=== PATIENT | female | born 1965 | race Caucasian/White ===

== ENCOUNTER → 2017-08-26 | Outpatient (CLI) | payer OTHER ==
[~2017-08-26] VITALS: Ht 153.7 cm; Wt 104.5 kg
[~2017-08-26] MED LIST: BUPRTAB51 PO; CYM/60 PO; ERGO1TAB12 PO; FOLI1TAB8 PO; HYDR200T5 PO; LEVO200T PO; LOSA50TA54 PO; METH2.5T PO; PRLSR20 PO; TOFA1TAB PO; TRAZ100T29 PO
[2017-08-26 12:46] VITALS: Ht 153.7 cm; Wt 104.5 kg
[2017-08-26 13:23] LABS: BASO % 0.2 %; BASO ABS # 0.01 K/uL (0-0.2); EOS % 1.3 %; EOS ABS # 0.07 K/uL (0-0.5); HEMATOCRIT 38.2 % (37-47); HEMOGLOBIN 12.3 g/dL (12.0-16.0); IG# 0.01 K/uL (0.00-0.02); LYMPH % 33.9 %; LYMPH ABS # 1.82 K/uL (1.2-3.4); MEAN CELL VOLUME 92.5 fL (80-100); MEAN CORPUSCULAR HEMOGLOBIN 29.8 pg (25-34); MEAN CORPUSCULAR HGB CONC 32.2 g/dl (32-36); MEAN PLATELET VOLUME 9.1 fL (7.4-10.4); MONO % 5.6 %; NEUT % 58.8 %; NEUT ABS # 3.16 K/uL (1.4-6.5); PLATELET COUNT 268 K/uL (130-400); RED CELL DISTRIBUTION WIDTH CV 18.9 % (11.5-14.5); RED CELL DISTRIBUTION WIDTH SD 63.8 fL (36.4-46.3); WHITE BLOOD COUNT 5.37 K/uL (4.8-10.8)
[2017-08-26 13:34] LABS: PTT PATIENT 25.3 SECONDS (21.0-31.0)
--- NOTE | 2017-08-26 13:42 | PAT Medication Instructions ---
Service Date Aug 26, 2017. Current Home Medication List Bupropion (Wellbutrin-Xl), 450 MG PO QAM Duloxetine HCl (Cymbalta), 1 CAP PO QAM Ergocalciferol (Vitamin D2), 50,000 PO WK Folic Acid (Folvite), 1 MG PO QAM Hydroxychloroquine Sulfate (Plaquenil), 200 MG PO BID Levothyroxine Sodium (Synthroid), 200 MCG PO QAM Losartan Potassium (Cozaar), 50 MG PO QPM Methotrexate (Methotrexate), 10 MG PO WK Omeprazole (Prilosec), 40 MG PO QAM Tofacitinib Citrate (Xeljanz), 1 TAB PO BID Trazodone Hcl (Trazodone), 400-500 MG PO HS Medication Instructions For Your Scheduled Surgery - Check with salicylic acid blender for instructions: Tofacitinib Citrate (Xeljanz), 1 TAB PO BID Methotrexate (Methotrexate), 10 MG PO WK Hydroxychloroquine Sulfate (Plaquenil), 200 MG PO BID - Hold the following medications 24 hours prior to surgery: Losartan Potassium (Cozaar), 50 MG PO QPM - Hold the following medications the morning of surgery: Ergocalciferol (Vitamin D2), 50,000 PO WK Folic Acid (Folvite), 1 MG PO QAM - Take the following medications the morning of surgery with a sip of water: Omeprazole (Prilosec), 40 MG PO QAM Levothyroxine Sodium (Synthroid), 200 MCG PO QAM Bupropion (Wellbutrin-Xl), 450 MG PO QAM Duloxetine HCl (Cymbalta), 1 CAP PO QAM - Take the following medications as scheduled the night before surgery: Trazodone Hcl (Trazodone), 400-500 MG PO HS If you have any questions please call us at [phone] or [phone] or [phone]
[2017-08-26 13:47] LABS: HEMOGLOBIN A1C 5.4 % (4.5-5.6)
--- NOTE | 2017-08-26 14:20 | DIAGNOSTIC IMAGING REPORT ---
CHEST 2 VIEWS ROUTINE CLINICAL HISTORY: Preoperative chest COMPARISON STUDY: No previous studies for comparison. FINDINGS: The cardiac and mediastinal contours are normal. There is no evidence of focal pulmonary consolidation. There is no evidence of failure. No pleural effusions are visualized.[ There is minor basilar atelectasis. IMPRESSION: No active disease in the chest. Electronically signed by: Renzo Angela M.D. 08/26/2017 2:19 PM Dictated Date/Time: 08/26/2017 2:18 PM
--- NOTE | 2017-08-26 14:24 | DIAGNOSTIC IMAGING REPORT ---
CERVICAL SPINE 2 OR 3 VIEWS CLINICAL HISTORY: PREOP, RHEUMATOID ARTHRITIS COMPARISON STUDY: None. FINDINGS: Lateral, flexion, extension views of the cervical spine. The cervical spine is visualized from C1 through T1. No fracture or subluxation. Alignment remains intact throughout flexion and extension. Moderate disc space narrowing at C5-C6. The C1-C2 interval remains intact. Prevertebral soft tissues are unremarkable. IMPRESSION: 1. Alignment remains intact throughout flexion and extension. Specifically, the C1-C2 interval is maintained. 2. Moderate disc space narrowing at C5-C6. Electronically signed by: Jero Dwyer M.D. 08/26/2017 2:22 PM Dictated Date/Time: 08/26/2017 2:21 PM
[2017-08-26 14:29] LABS: ALBUMIN 3.7 gm/dl (3.4-5.0); CALCIUM 9.2 mg/dl (8.5-10.1); CREATININE 0.96 mg/dl (0.60-1.20)
== END | disposition home or self-care (01) ==
LOC: C.LAB 08:00 → EDSTATUS 09-23 12:28
PROVIDERS: ATTEND Orthopaedic Surgery
DX: Z01.812 Encounter for preprocedural laboratory examination (principal); M06.9 Rheumatoid arthritis, unspecified

== ENCOUNTER 2018-01-12 11:47 | Inpatient (IN) | payer OTHER ==
[2017-12-24 14:37] VITALS: Ht 152.4 cm; Wt 97.7 kg
--- NOTE | 2017-12-31 10:17 | HISTORY & PHYSICAL EXAMINATION ---
DATE OF ADMISSION: 01/12/2018 CHIEF COMPLAINT: Left knee pain. HISTORY OF PRESENT ILLNESS: Ms. Sampson is a 52-year-old female with a 1-1/2 year history of left knee pain. The patient rates her pain a 10/10. She has pain with her daily activities. She has limited standing and walking tolerance. Pain is worse with weightbearing. The patient has been using a walker and a wheelchair to ambulate. She has done home exercise program. She takes Tylenol with Codeine as well as Voltaren gel. She has failed conservative treatment and is scheduled for left knee replacement. PAST MEDICAL HISTORY: Mitral valve regurg, hypertension, sleep apnea. She denies heart disease, diabetes or DVT. PAST SURGICAL HISTORY: , tonsillectomy and lymphadenectomy. SOCIAL HISTORY: The patient denies alcohol or tobacco use. She lives in a 2-story home. She is and retired. FAMILY HISTORY: Negative for DVT. MEDICATIONS: Wellbutrin XL 450 mg, Cymbalta 60 mg, omeprazole 40 mg, folic acid 1 mg, Voltaren 75 mg b.i.d., losartan 50 mg, trazodone 400/500, Topamax 25 mg and Tylenol with Codeine p.r.n. ALLERGIES: TRAMADOL CAUSES SHORTNESS OF BREATH. REVIEW OF SYSTEMS: See HPI. Ten other systems reviewed, all negative. PHYSICAL EXAMINATION: VITAL SIGNS: Height 5 feet 1 inch, weight 221 pounds, BMI 42. GENERAL: This is a well-developed, well-nourished female who is alert and oriented x3. Mood and affect are appropriate. HEENT: Normocephalic, atraumatic. Mucous membranes are moist and intact. NECK: Supple without lymphadenopathy. HEART: Regular rate and rhythm without murmurs, rubs or gallops. LUNGS: Clear to auscultation without wheezes or rhonchi. ABDOMEN: Soft and nontender. Bowel sounds are equal and active. EXTREMITIES: No ecchymosis, redness or warmth. Thigh and calf are soft, nontender. She has mild varus deformity. Range of motion is decreased. She has painful range of motion. She is neurovascularly intact. X-RAY EXAMINATION: AP and lateral views show joint space narrowing and osteophyte formation. IMPRESSION: 1. Degenerative joint disease, left knee. 2. Morbid obesity. PLAN: The patient will be admitted for a left total knee arthroplasty. We will plan on aspirin for DVT prophylaxis. The patient will have home health for therapy.
[~2018-01-12] VITALS: Ht 152.4 cm; Wt 97.7 kg
[2018-01-12] VITALS (7 sets, daily range): BP systolic 146–182; BP diastolic 87–104; PULSE 92–97; TEMP 36.3–37.1; O2SAT 91–99
--- NOTE | 2018-01-12 10:42 | History & Physical Bridge Note ---
H&P Re-Evaluation Bridge Note: I have examined the patient, reviewed the History & Physical and in the interval since the performance of the History & Physical I have noted the following changes of clinical significance: No changes noted
[~2018-01-12 11:47] MED LIST changes: +ACET-749 PO; +ACETAMINOPHEN 500 MG TAB PO SCH; +ATROPINE SULFATE 0.1 MG/ML 5ML SYR IV PRN; +BUPIVACAINE 0.25% 30 ML VIAL ONE; +BUPIVACAINE 0.5 % 5 MG/1 ML PF 10ML VIAL ONE; +CEFAZOLIN 2000MG IV PUSH 15 ML IV SCH; +CeleBREX 200 MG CAP PO SCH; +DEXAMETHASONE 4 MG TAB PO SCH; +DICL-201 PO; -ERGO1TAB12 PO; +EpHEDrine SULFATE INJ 50 MG/ML AMP IV PRN; +FAMOTIDINE 20 MG TAB PO SCH; +FLUT50SP37 INTNAS; -FOLI1TAB8 PO; +GABAPENTIN 900 MG PO SCH; -HYDR200T5 PO; +LACTATED RINGER'S 1000ML 1,000 ML IV SCH; +LACTATED RINGER'S 1000ML 500 ML IV SCH; -METH2.5T PO; +METOCLOPRAMIDE HCL 10 MG TAB PO SCH; +ROPIVACAINE 5MG/ML 30 ML 150 MG, BUPIVACAINE 0.5% MPF INJ 30 ML, EpINEphrine HCL INJ 0.... INFIL SCH; -TOFA1TAB PO; +TOPI50TA16 PO
[2018-01-12] MEDS ORDERED: FENTANYL CITRATE INJ 50 MCG/1 ML 2 ML VIAL ONE (11:54)
[2018-01-12] MEDS ORDERED: MIDAZOLAM HCL 1 MG/ML 2ML VIAL ONE ×2 (11:54→12:35)
[2018-01-12] MEDS ORDERED: ORTHO JOINT ANESTHETIC ONE (12:42)
[2018-01-12] MEDS ORDERED: POVIDONE-IODINE OP SOLN 30 ML BTL ONE (12:43)
[2018-01-12] MEDS ORDERED: BACITRACIN 50000 UNIT VIAL ONE (12:43)
[2018-01-12] MEDS: TRANEXAMIC ACID INJ 1,000 MG x 2 Bags IV SCH ×4 (13:03→17:40)
[2018-01-12] MEDS ORDERED: LIDOCAINE HCL 2% 2 ML VIAL (20MG/ML) ONE (13:59)
[2018-01-12] MEDS ORDERED: PROPOFOL IV EMULSION 10 MG/ML 20 ML VIAL IV ONE (13:59)
[2018-01-12] MEDS ORDERED: ONDANSETRON INJ 2 MG/ML 2 ML VIAL ONE (14:25)
[2018-01-12] MEDS ORDERED: GLYCOPYRROLATE INJ 0.2 MG/ML VIAL ONE (14:27)
--- NOTE | 2018-01-12 14:29 | [facility] Post Operative Brief Note ---
Immediate Operative Summary Operative Date Jan 12, 2018. Pre-Operative Diagnosis Left Knee Degenerative Joint Disease Post-Operative Diagnosis Left Knee Degenerative Joint Disease Procedure(s) Performed Left Total Knee Arthroplasty utilizing [employer] journey to patient match total knee arthroplasty size 4 femur to tibia 13 Kaylin [address] Montilla Patient Resource Coordinator Surgeon(s) Ryan Cummings PA-C Estimated Blood Loss 5CC Findings Consistent with Post-Op Diagnosis Specimens A: Left Knee Bone and Tissue Anesthesia Type MAC Spinal Regional Complication(s) none Disposition Disposition: Recovery Room / PACU
--- NOTE | 2018-01-12 14:31 | [facility] Operative Report ---
Operative Report Operative Date Jan 12, 2018. Pre-Operative Diagnosis Left Knee Degenerative Joint Disease Post-Operative Diagnosis Left Knee Degenerative Joint Disease Procedure(s) Performed Left Total Knee Arthroplasty utilizing [employer] journey to patient match total knee arthroplasty size 4 femur to tibia 13 Kaylin [address] Montilla Hand I Cutter Surgeon(s) Ryan Cummings PA-C Estimated Blood Loss 5CC Findings Severe end-stage tricompartmental degenerative joint disease left knee with varus alignment subchondral sclerosis marginal osteophytes is cystic changes no response to conservative therapy including physical therapy and corticosteroid injections viscous supplementations relative rest activity modification bracing Specimens A: Left Knee Bone and Tissue Anesthesia Type MAC Spinal Regional Complication(s) none Disposition Recovery Room / PACU Indications Patient presents with varus alignment subchondral sclerosis marginal osteophytes cystic formation bone to bone eburnated bone relative rest is been advocated that she is had continued complaints of pain no response of intra- articular corticosteroid as well as Visco supplementation is been tried with no relief patient presents for total knee arthroplasty the above findings were verified time of surgery intraoperatively Description of Procedure After proper prepping and draping of the left lower extremity anterior midline incision was made over the region of the extensor extensor mechanism after meticulous hemostasis was obtained and maintained in subcutaneous tissues a medial parapatellar incision was made The patella was subluxed lateralward the medial lateral gutter were cleaned from any hypertrophic synovitis and scar tissue of the distal femoral block was placed and the distal femoral osteotomy cut was made subsequently the chamfers anterior and posterior osteotomy cuts were made utilizing the 4-in-1 block the tibia was subsequently subluxed anteriorward medial and ateral meniscal remnants were excised in their entirety remnants of the anterior and posterior cruciate ligaments were excised in their entirety excellent exposure of the proximal tibia was obtained the tibial osteotomy guide was placed on the proximal tibial osteotomy cut was made once again the knee was irrigated with copious amounts of sterile saline solution the patella was subsequently everted lateralward thickened scar tissue around the patella was removed the patella was subsequently cut utilizing a freehand technique and was drilled prepared for final preparation and placement of patella socially flexion-extension gaps were checked and the equal and symmetric trials were placed to the appropriate femoral and tibial trials with poly-spacer being placed for equal flexion and extension gaps and full range of motion including extension to 0 and flexion to 140 the trial components after having been taken to recovery range of motion was subsequently removed meticulous hemostasis was obtained and maintained subsequently a knee block injection of joint cocktail including ropivacaine 0.5% 150 mg. Bupivacaine 0.5 % epinephrine 1-200,030 mL's toradol 30 mg dexamethasone 4 mg ketamine 10 mg clonidine 100 micrograms normal saline solution 30 mg was infiltrated into the soft tissues of the posterior knee medial lateral gutters and periosteal synovium special attention was paid to protect neurovascular structures at all times subsequently trial components having been removed the knee was irrigated with sterile saline solution. debris was removed the proximal tibia was subsequently prepared and was made ready for the placement of the tibial component tibial component was also cemented and tamped into position the femoral component was subsequently placed and cemented in the position the patellar component was subsequently cemented in position because hemostasis once again obtained and maintained wound having been thoroughly irrigated with debridement and debridement lavage was performed as well as a medial parapatellar incision closed with #1 Vicryl in interrupted fashion subcutaneous was closed with #2 Vicryl skin was closed with skin clips. PA-C was necessary for prepping and drapping as well as wound closure of deep fascia Sub cutaneous tissue and skin and was necessary for the case. A sterile compressive dressing was placed patient was taken to recovery in stable condition of report dictated by Roldan I attest to the content of the Intraoperative Record and any orders documented therein. Any exceptions are noted below. I attest to the content of the Intraoperative Record and any orders documented therein. Any exceptions are noted below.
[2018-01-12] MEDS ORDERED: ONDANSETRON INJ 2 MG/ML 2 ML VIAL IV PRN (15:30)
[2018-01-12] MEDS ORDERED: MAGNESIUM HYDROXIDE SUSP 30 ML UDC PO PRN (15:30)
[2018-01-12] MEDS ORDERED: ALUMINUM/MAGNESIUM/SIMETH (MAALOX MAX) 30 ML UDC PO PRN (15:30)
[2018-01-12] MEDS ORDERED: BISACODYL 10 MG SUPP PR PRN (15:30)
[2018-01-12] MEDS ORDERED: FLUTICASONE PROPIONATE NA SPR 16 GM BTL PRN (15:30)
--- NOTE | 2018-01-12 15:32 | DIAGNOSTIC IMAGING REPORT ---
L KNEE 1 OR 2 VIEWS ROUTINE CLINICAL HISTORY: 52 years-old Female presenting with AP/LATERAL IN PACU LEFT KNEE. TECHNIQUE: Frontal and lateral views of the left knee were obtained. COMPARISON: None. FINDINGS: Postsurgical changes of total left knee arthroplasty with patellar resurfacing. A surgical drain is in place. Expected intra-articular and soft tissue emphysema. No malalignment. No periprosthetic fracture. No hardware complication. IMPRESSION: Expected postsurgical appearance status post total left knee arthroplasty with patellar resurfacing. Electronically signed by: Cleve Bustamante M.D. 01/12/2018 3:31 PM Dictated Date/Time: 01/12/2018 3:30 PM
--- NOTE | 2018-01-12 15:47 | Anesthesiology Progress Note ---
Anesthesia Post Op Note Date & Time Jan 12, 2018 at 15:46 Vital Signs Pain Intensity: 0 Vital Signs Past 12 Hours Date Time Temp Pulse Resp B/P (MAP) Pulse Ox O2 Delivery O2 Flow Rate FiO2 01/12/18 15:41 150/92 01/12/18 15:40 91 13 01/12/18 15:40 91 13 99 01/12/18 15:36 146/82 01/12/18 15:35 90 19 98 01/12/18 15:35 90 19 01/12/18 15:31 135/82 01/12/18 15:30 91 16 98 01/12/18 15:30 91 16 01/12/18 15:26 123/80 01/12/18 15:25 94 14 01/12/18 15:25 93 14 99 01/12/18 15:21 122/74 01/12/18 15:20 93 16 98 01/12/18 15:20 93 16 01/12/18 15:15 93 18 117/71 97 01/12/18 15:15 93 18 01/12/18 15:15 36.2 94 16 117/71 97 Nasal Cannula 2 01/12/18 12:14 37.1 95 20 182/104 96 Room Air Notes Mental Status: alert / awake / arousable, participated in evaluation Pt Amnestic to Procedure: Yes Nausea / Vomiting: adequately controlled Pain: adequately controlled Airway Patency, RR, SpO2: stable & adequate BP & HR: stable & adequate Hydration State: stable & adequate Neuraxial Anesthesia: was administered, sensory block is resolving Anesthetic Complications: no major complications apparent Anesthetic Complications: patient remembers joint being prepped, but no memory of surgical procedure or block placement otherwise. Very satisfied with her anesthetic care.
[2018-01-12] MEDS: D5W AND 1/2NSS + 20MEQ KCL 1,000 ML IV SCH (17:43)
[2018-01-12] MEDS: FERROUS GLUCONATE 324 MG TAB PO SCH (17:43)
[2018-01-12] MEDS: CEFAZOLIN IV 2,000 MG in SYRINGE 0 ML IV SCH (20:08)
[2018-01-12] MEDS: DOCUSATE SODIUM 100 MG CAP PO SCH (20:10)
[2018-01-12] MEDS: LOSARTAN POTASSIUM 50 MG TAB PO SCH (20:10)
[2018-01-12] MEDS: TOPIRAMATE 50 MG TAB PO SCH (20:11)
[2018-01-12] MEDS: SENNA 8.6 MG TAB PO SCH (20:11)
[2018-01-12] MEDS: ASPIRIN 81 MG ECTAB PO SCH (20:11)
[2018-01-12] MEDS: CeleBREX 200 MG CAP PO SCH (20:12)
[2018-01-12] MEDS: OXYCODONE HCL IR 5 MG TAB (IMMEDIATE RELEASE) PO PRN (20:25)
[2018-01-12] MEDS: TRAZODONE HCL 100 MG TAB PO SCH (21:50)
[2018-01-12] MEDS: MoRPHine SULFATE 2 MG/ML CARP IV PRN (21:54)
[2018-01-12] MEDS: ACETAMINOPHEN 500 MG TAB PO SCH (21:54)
[2018-01-13] MEDS: D5W AND 1/2NSS + 20MEQ KCL 1,000 ML IV SCH ×2 (03:06→13:00)
[2018-01-13 03:54] VITALS: BP 107/67; PULSE 78; TEMP 36.8; O2SAT 94
[2018-01-13] MEDS: CEFAZOLIN IV 2,000 MG in SYRINGE 0 ML IV SCH (04:08)
[2018-01-13] MEDS: ACETAMINOPHEN 500 MG TAB PO SCH ×2 (05:34→13:41)
[2018-01-13] MEDS: LEVOTHYROXINE 200 MCG TAB PO SCH (05:35)
[2018-01-13 06:07] LABS: HEMATOCRIT 36.4 % (37-47); HEMOGLOBIN 12.2 g/dL (12.0-16.0); MEAN CELL VOLUME 93.8 fL (80-100); MEAN CORPUSCULAR HEMOGLOBIN 31.4 pg (25-34); MEAN CORPUSCULAR HGB CONC 33.5 g/dl (32-36); MEAN PLATELET VOLUME 9.2 fL (7.4-10.4); PLATELET COUNT 220 K/uL (130-400); RED CELL DISTRIBUTION WIDTH CV 14.1 % (11.5-14.5); RED CELL DISTRIBUTION WIDTH SD 48.1 fL (36.4-46.3); WHITE BLOOD COUNT 10.19 K/uL (4.8-10.8)
[2018-01-13 06:43] LABS: CALCIUM 8.6 mg/dl (8.5-10.1); POTASSIUM 4.1 mmol/L (3.5-5.1)
--- NOTE | 2018-01-13 06:49 | Orthopedic Progress Note ---
Orthopedic Progress Note Date of Service Jan 13, 2018. Subjective Post OP Day: 1 (left TKA) Reports: feeling well, pain controlled w PO medications, Denies: complaints, chest pain, SOB, nausea / vomiting, light headedness, calf pain Objective calves soft nontender, N/V intact, capillary refill less than 2 sec., dressing C /D/I, A&O x3, toes mobile, hemovac drainage (200cc total since surgery) Date Time Temp Pulse Resp B/P (MAP) Pulse Ox O2 Delivery O2 Flow Rate FiO2 01/13/18 03:54 36.8 78 16 107/67 (80) 94 Room Air 01/12/18 23:10 Room Air 01/12/18 22:55 36.7 96 16 146/87 (106) 91 Room Air 01/12/18 20:06 97 160/93 (115) 01/12/18 19:02 36.9 95 16 147/89 (108) 97 Room Air 01/12/18 18:00 36.3 95 16 157/91 (113) 98 Nasal Cannula 2.0 01/12/18 17:11 36.5 92 17 152/91 (111) 98 Nasal Cannula 2.0 01/12/18 16:00 99 Nasal Cannula 2.0 01/12/18 16:00 99 Nasal Cannula 2.0 01/12/18 15:52 36.4 91 15 154/82 99 Nasal Cannula 2 01/12/18 15:41 150/92 01/12/18 15:40 91 13 01/12/18 15:40 91 13 99 01/12/18 15:36 146/82 01/12/18 15:35 90 19 98 01/12/18 15:35 90 19 01/12/18 15:31 135/82 01/12/18 15:30 91 16 98 01/12/18 15:30 91 16 01/12/18 15:26 123/80 01/12/18 15:25 94 14 01/12/18 15:25 93 14 99 01/12/18 15:21 122/74 01/12/18 15:20 93 16 98 01/12/18 15:20 93 16 01/12/18 15:15 93 18 117/71 97 01/12/18 15:15 93 18 01/12/18 15:15 36.2 94 16 117/71 97 Nasal Cannula 2 01/12/18 12:14 37.1 95 20 182/104 96 Room Air Laboratory Results 24 Hours: Test 01/13/18 05:20 Hematocrit 36.4 % Hemoglobin 12.2 g/dL Assessment & Plan Assessment: POD #1 s/p Left TKA -pt/ot -dvt proph with yvette/scd/asa -plan for d/c home with HHPT, likely Hypertension- continue home meds Discharge Planning Discharge Planning: home with home health DVT Prophylaxis: TEDs, SCDs, ASA Therapy: Physical Therapy
--- NOTE | 2018-01-13 06:50 | Discharge Instructions ---
Discharge Instructions Date of Service Jan 13, 2018. Admission Reason for Admission: Left Knee Osteoarthritis Discharge Discharge Diagnosis / Problem: left total knee replacement Discharge Goals Goal(s): Decrease discomfort, Improve function, Increase independence Activity Recommendations Activity Limitations: as noted below Weightbearing Status: Left weightbearing (as tolerated) . Instructions / Follow-Up Instructions / Follow-Up ACTIVITY RECOMMENDATIONS: SELF CARE INSTRUCTIONS AFTER TOTAL KNEE REPLACEMENT A. You may need to continue a physical therapy program after discharge from the hospital. There are several options available to you. Your doctor will assist you in selecting the best one for you. 1. An out-patient facility 2 to 3 times a week for therapy or home therapy. 2. Continue working on all exercises taught to you in the hospital. Your goals should be to increase bending of your knee to 90 degrees and beyond and to fully straighten your knee. B. You may progress at your own pace from walking with a walker or crutches to a cane; then to no assistive devices. C. Make walking a part of your daily routine. Be up as much as comfortable with rest periods throughout the day. Rest with leg elevation is very important. Use the ice wrap frequently for the first 3-4 weeks. D. There are no restrictions on activities. You may ride in a car, shop, participate in goldsmith apprentice and all social activities. E. Wear the long elastic stockings (DEBRA hose) 20 hours a day for 2 weeks after surgery. They can be removed several times a day for laundering and for a bath. F. You may shower, no tub baths until cleared by your doctor. SPECIAL CARE INSTRUCTIONS: VERY IMPORTANT TO READ AND REVIEW A. There are a few signs you need to watch for after you are home. Call [facility] if you notice any of the followin. Increased severe knee pain. Some pain is expected especially when you exercise. 2. Increased swelling in your leg or knee; pain or swelling of the calf muscle in either lower leg. 3. Any fluid drainage from the incision. 4. Shortness of breath or chest pain. B. Please call [facility] at if you have any concerns or questions about your operation or recovery. The doctor or his nurse will return your call promptly. C. You must take antibiotics before dental work, bladder, bowel or other surgery. Your doctor will provide you with a permanent care to carry describing this precaution. IMPORTANT: * REMEMBER TO TAKE ASPIRIN, 81 MG, TWICE DAILY FOR 4 WEEKS UNLESS OTHERWISE DIRECTED. THIS IS YOUR BLOOD THINNER. * HIGH RISK PATIENTS MAY BE PRESCRIBED A STRONGER BLOOD THINNER. THIS WILL BE PROVIDED AT DISCHARGE. * CALL IF INCREASED PAIN, REDNESS, DRAINAGE OR FEVER GREATER THAT 101. * WEAR DEBRA HOSE 20 HOURS PER DAY FOR 2 WEEKS. * DERMABOND Prineo- This is a mesh tape dressing that is covered with glue. It should remain in place until the incision is properly healed, usually 10-14 days. This dressing is designed to naturally slough off. You may trim the excess mesh tape as it peels off. Incision may be briefly wet in a shower. Dry immediately by blotting with a clean, dry towel. Do not bath or swim until instructed by your doctor. Do not scratch, rub, or pick at the dressing. Do not apply any topical ointments or lotions until dressing is completely removed and/or instructed by your doctor. There may be a small piece of suture material at one end of your incision. Do not pull or trim this. If it is bothersome or catching on clothing, you may cover it with a band-aid. FOLLOW UP VISIT: If appointment is not already scheduled: Please call [facility] to make a follow-up appointment for 2 weeks after your surgery at . Current Hospital Diet Patient's current hospital diet: Regular Diet Discharge Diet Recommended Diet: Regular Diet Procedures Procedures Performed: Left Total Knee Arthroplasty utilizing [employer] journey to patient match total knee arthroplasty size 4 femur to tibia 13 Kaylin 29 oval patella Pending Studies Studies pending at discharge: no Medical Emergencies . Who to Call and When: Medical Emergencies: If at any time you feel your situation is an emergency, please call 911 immediately. . Non-Emergent Contact Non-Emergency issues call your: Primary Care Provider, Surgeon . "Provider Documentation" section prepared by Dario Triana. . [place] Drug Monitoring Program Search Results: patient reviewed within database, no issues identified
[2018-01-13 07:03] VITALS: BP 146/85; PULSE 77; TEMP 36.8; O2SAT 95
[2018-01-13] MEDS: MoRPHine SULFATE CR 15 MG TAB (MS CONTIN) PO SCH ×2 (08:25→20:02)
[2018-01-13] MEDS: OXYCODONE HCL IR 5 MG TAB (IMMEDIATE RELEASE) PO PRN ×2 (08:26→13:40)
[2018-01-13] MEDS: ASPIRIN 81 MG ECTAB PO SCH ×2 (08:27→20:04)
[2018-01-13] MEDS: DOCUSATE SODIUM 100 MG CAP PO SCH ×2 (08:27→20:03)
[2018-01-13] MEDS: FERROUS GLUCONATE 324 MG TAB PO SCH ×3 (08:27→17:42)
[2018-01-13] MEDS: MULTIVITAMIN TAB PO SCH (08:27)
[2018-01-13] MEDS: CeleBREX 200 MG CAP PO SCH (08:28)
[2018-01-13] MEDS: BUPROPION PO SCH ×2 (08:29)
[2018-01-13] MEDS ORDERED: DULOXETINE HCL 60 MG CAP PO SCH (09:00)
[2018-01-13] MEDS ORDERED: BuPROPion XL 300 MG TABCR PO SCH (09:00)
--- NOTE | 2018-01-13 10:45 | Anesthesiology Progress Note ---
Anesthesia Post Op Note Date & Time Jan 13, 2018 at 10:43 Vital Signs Vital Signs Past 12 Hours Date Time Temp Pulse Resp B/P (MAP) Pulse Ox O2 Delivery O2 Flow Rate FiO2 01/13/18 08:00 Room Air 01/13/18 07:03 36.8 77 17 146/85 (105) 95 Room Air 01/13/18 03:54 36.8 78 16 107/67 (80) 94 Room Air 01/12/18 23:10 Room Air 01/12/18 22:55 36.7 96 16 146/87 (106) 91 Room Air Notes Mental Status: alert / awake / arousable, participated in evaluation Pt Amnestic to Procedure: Yes Nausea / Vomiting: adequately controlled Pain: adequately controlled Airway Patency, RR, SpO2: stable & adequate BP & HR: stable & adequate Hydration State: stable & adequate Anesthetic Complications: no major complications apparent
[2018-01-13] MEDS: MoRPHine SULFATE 2 MG/ML CARP IV PRN (11:24)
[2018-01-13 11:30] VITALS: BP 124/70; PULSE 76; TEMP 36.4; O2SAT 99
[2018-01-13] MEDS: DULOXETINE HCL 60 MG CAP PO SCH (12:50)
[2018-01-13] MEDS ORDERED: MoRPHine SULFATE 2 MG/ML CARP IV PRN (14:00)
[2018-01-13] MEDS: KETOROLAC TROMETHAMINE 30 MG/ML VIAL IV PRN (14:31)
[2018-01-13 15:17] VITALS: BP 150/86; PULSE 86; TEMP 36.6; O2SAT 95
[2018-01-13 21:53] VITALS: BP 161/82; PULSE 88; O2SAT 97
[2018-01-13] MEDS: LOSARTAN POTASSIUM 50 MG TAB PO SCH (21:54)
[2018-01-13] MEDS: TOPIRAMATE 50 MG TAB PO SCH (21:54)
[2018-01-13] MEDS: SENNA 8.6 MG TAB PO SCH (21:55)
[2018-01-13] MEDS: TRAZODONE HCL 100 MG TAB PO SCH (22:03)
[2018-01-13 22:49] VITALS: BP 122/78; PULSE 90; TEMP 37; O2SAT 94
[2018-01-13] MEDS: HYDROCODONE/ACETAMIN 5/325MG TAB PO PRN (23:34)
[2018-01-14] MEDS: KETOROLAC TROMETHAMINE 30 MG/ML VIAL IV PRN (00:53)
[2018-01-14] MEDS: LEVOTHYROXINE 200 MCG TAB PO SCH (05:24)
[2018-01-14] MEDS: HYDROCODONE/ACETAMIN 5/325MG TAB PO PRN ×4 (05:25→15:21)
--- NOTE | 2018-01-14 07:06 | Orthopedic Progress Note ---
Orthopedic Progress Note Date of Service Jan 14, 2018. Subjective Post OP Day: 2 Reports: feeling well, Denies: complaints, chest pain, SOB, nausea / vomiting, light headedness, calf pain Additional Notes: poor pain control yesterday afternoon, seems improved this am Objective calves soft nontender, N/V intact, capillary refill less than 2 sec., incision C /D/I, A&O x3, toes mobile Date Time Temp Pulse Resp B/P (MAP) Pulse Ox O2 Delivery O2 Flow Rate FiO2 01/13/18 23:30 Room Air 01/13/18 22:49 37.0 90 16 122/78 (93) 94 Room Air 01/13/18 21:53 88 20 161/82 (108) 97 Room Air 01/13/18 15:30 Room Air 01/13/18 15:17 36.6 86 20 150/86 (107) 95 Room Air 01/13/18 11:30 36.4 76 12 124/70 (88) 99 Room Air 01/13/18 08:00 Room Air Assessment & Plan Assessment: POD #2 s/p Left TKA -pt/ot -dvt proph with yvette/scd/asa -plan for d/c home with HHPT, if pain controlled after PT today Hypertension- continue home meds Discharge Planning Discharge Planning: home with home health DVT Prophylaxis: TEDs, SCDs, ASA Therapy: Physical Therapy
[2018-01-14] MEDS ORDERED: CLB200 PO (07:08)
[2018-01-14] MEDS ORDERED: ONDA-170 PO (07:08)
[2018-01-14] MEDS ORDERED: MRPSR15 PO (07:08)
[2018-01-14] MEDS ORDERED: CLC100 PO (07:08)
[2018-01-14] MEDS ORDERED: HYDR-5688 PO (07:08)
[2018-01-14] MEDS ORDERED: ASPEC81 PO (07:08)
[2018-01-14 07:24] VITALS: BP 149/77; PULSE 89; TEMP 36.6; O2SAT 92
[2018-01-14] MEDS: MoRPHine SULFATE CR 15 MG TAB (MS CONTIN) PO SCH (08:42)
[2018-01-14] MEDS: FERROUS GLUCONATE 324 MG TAB PO SCH ×2 (08:42→13:04)
[2018-01-14] MEDS: DULOXETINE HCL 60 MG CAP PO SCH (08:42)
[2018-01-14] MEDS: BUPROPION PO SCH ×2 (08:43)
[2018-01-14] MEDS: MULTIVITAMIN TAB PO SCH (08:43)
[2018-01-14] MEDS: DOCUSATE SODIUM 100 MG CAP PO SCH (09:53)
[2018-01-14] MEDS: ASPIRIN 81 MG ECTAB PO SCH (09:53)
[2018-01-14] MEDS ORDERED: PANTOprazole SOD 40 MG TAB PO STA (10:45)
[2018-01-14 10:51] VITALS: BP 149/77; PULSE 89; TEMP 36.6; O2SAT 92
== END 2018-01-14 15:39 | disposition home health service (06) | DRG 470 ==
LOC: C.ACU 11:47 → C.3E 12:30 → ENRESERV 15:39
PROVIDERS: ADMIT Orthopaedic Surgery; ATTEND Orthopaedic Surgery
PROC: 0SRD0J9 Replacement of Left Knee Joint with Synthetic Substitute, Cemented, Open Approach (ICD-10-PCS; principal; 2018-01-12 13:45)
DX: M17.12 Unilateral primary osteoarthritis, left knee (principal); Z68.41 Body mass index [BMI] 40.0-44.9, adult; I10 Essential (primary) hypertension; E66.01 Morbid (severe) obesity due to excess calories; Z79.899 Other long term (current) drug therapy; Z88.5 Allergy status to narcotic agent

== ENCOUNTER 2020-04-17 07:20 | Inpatient (IN) ==
--- NOTE | 2020-03-16 14:31 | PAT Medication Instructions ---
Medication Instructions Date of Service March 16, 2020 Home Medications amoxicillin 500 mg PO UD PRN bupropion HCl [Wellbutrin XL] 150 mg PO QAM bupropion HCl [Wellbutrin XL] 300 mg PO QAM carvedilol [Coreg] 6.25 mg PO BID chlorthalidone 12.5 mg PO QAM cholecalciferol (vitamin D3) 50 mcg PO QAM duloxetine [Cymbalta] 30 mg PO QAM duloxetine [Cymbalta] 120 mg PO QAM levothyroxine 175 mcg PO QAM multivitamin 1 tab PO QAM omeprazole 40 mg PO QAM trazodone 500 mg PO HS vitamin B complex 1 tab PO QAM Continue as directed amoxicillin 500 mg PO UD PRN DO NOT take the morning of surgery chlorthalidone 12.5 mg PO QAM cholecalciferol (vitamin D3) 50 mcg PO QAM multivitamin 1 tab PO QAM vitamin B complex 1 tab PO QAM Take morning of surgery With a small sip of water, OTHERWISE NOTHING TO EAT OR DRINK AFTER MIDNIGHT: bupropion HCl [Wellbutrin XL] 150 mg PO QAM bupropion HCl [Wellbutrin XL] 300 mg PO QAM carvedilol [Coreg] 6.25 mg PO BID duloxetine [Cymbalta] 30 mg PO QAM duloxetine [Cymbalta] 120 mg PO QAM levothyroxine 175 mcg PO QAM omeprazole 40 mg PO QAM Take evening before surgery carvedilol [Coreg] 6.25 mg PO BID trazodone 500 mg PO HS Other Notes If you have any questions please call us at [phone] or [phone] or [phone] or [phone]
--- NOTE | 2020-03-19 13:57 | Anesthesiology Consultation ---
Date of Service March 19, 2020 Assessment & Plan (1) Encounter for pre-operative examination: Patient reported to nurse that she is taking 500mg of Trazodone at bedtime. Awaiting return call from patient to confirm this, as this dose is extremely high. Patient also reports h/o mitral regurgitation, and that she pre-treats with ABX prior to dental procedures. She reports she had an echo prior to previous TKA in 2018. Will attempt to obtain. Patient also to see PCP for surgeon-ordered clearance, though she is unsure of the date at this time. COVID Status: As of 03/16 nurse assessment, patient denies travel to endemic area, known exposure/sick contacts, or symptoms of COVID19. Preoperative COVID19 testing to be completed prior to surgery. Chart Review Chart Review: Acceptable Risk for Surgery (pending surgeon ordered PCP clearance) and Patient seen in Pre Admission Testing Teaching & Discussion Instructed NPO after midnight before surgery, except medications with 15 cc of water. Medication instructions provided according to the PAT guidelines. History Surgery Operation Date: 04/17/20 07:15 Proposed Procedures p Right Total Knee Arthroplasty - Per Montilla DO Height/Weight Height: 5 ft 1 in Weight: 99.337 kg Allergies Allergy/AdvReac Type Severity Reaction Status Date / Time tramadol Allergy Severe SUPPRESSES Verified 03/13/20 14:35 RESPIRATORY SYSTEM Medications Home Medications Medication Instructions Recorded Confirmed Last Taken amoxicillin 500 mg PO UD PRN 03/13/20 03/13/20 Unknown bupropion HCl [Wellbutrin XL] 150 mg PO QAM 03/13/20 03/13/20 Unknown bupropion HCl [Wellbutrin XL] 300 mg PO QAM 03/13/20 03/13/20 Unknown carvedilol [Coreg] 6.25 mg PO BID 03/13/20 03/13/20 Unknown chlorthalidone 12.5 mg PO QAM 03/13/20 03/13/20 Unknown cholecalciferol (vitamin D3) 50 mcg PO QAM 03/13/20 03/13/20 Unknown [Vitamin D3] duloxetine [Cymbalta] 30 mg PO QAM 03/13/20 03/13/20 Unknown duloxetine [Cymbalta] 120 mg PO QAM 03/13/20 03/13/20 Unknown levothyroxine 175 mcg PO QAM 03/13/20 03/13/20 Unknown multivitamin 1 tab PO QAM 03/13/20 03/13/20 Unknown omeprazole 40 mg PO QAM 03/13/20 03/13/20 Unknown trazodone 500 mg PO HS 03/13/20 03/13/20 Unknown vitamin B complex 1 tab PO QAM 03/13/20 03/13/20 Unknown tofacitinib [Xeljanz] 5 mg PO HS 03/19/20 03/19/20 Unknown Past Medical History Medical History Barretts esophagus Depression with anxiety Fibromyalgia GERD (gastroesophageal reflux disease) Hx of migraines Hyperlipidemia CONTROLLED WITH DIET Hypertension Hypothyroidism Insomnia Mitral valve regurgitation PT STATES DOES PRE-TREAT BEFORE DENTAL PROCEDURES Osteoarthritis Rheumatoid arthritis Exercise / Class Metabolic Activity III < 4 Walking/Shop/Light housework (Using cane for ambulation, +ANDRE with stairs, denies CP or ANDRE with ambulation on one level) Past Family History Family History Other No significant family history Past Surgical History Surgical History Cyst REMOVED FROM RT ARM H/O laparoscopy FOR ENDOMETRIOSIS History of section X 1 History of colonoscopy History of esophagogastroduodenoscopy (EGD) History of nasal septoplasty History of tonsillectomy and adenoidectomy History of total knee replacement LEFT Nausea and vomiting after administration of anesthetic agent [place] teeth removed Past Anesthesia History No Hx of Anesthesia Complications (other than PONV) and No Family Hx of Anesthesia Complications History of PONV History of PONV (not with previous TKA) and Hx of Motion Sickness Social History Smoking Status: Never smoker Do You Dip or Chew Tobacco: No Hx Alcohol Use: Yes Alcohol type: wine and hard liquor alcohol intake frequency: a few times a month Hx Substance Use: No Review of Systems Pt denies any recent chest pain, shortness of breath, palpitations, cough, fever or URI. Physical Exam Vital Signs BP: 124/84 P: 78bpm SPO2: 98% RA T: 98.3 F R: 14 Constitutional + obese ENMT Mouth: + chipped teeth (upper L broken filling); no loose teeth Thyromental Distance: > or= 3.5 Finger Breadths (4) Mallampati Class: III Neck + thick neck; neck extension not limited Respiratory normal respiratory effort Auscultation: lungs clear to auscultation bilaterally Cardiovascular Rate/Rhythm: regular rate and regular rhythm Heart Sounds: no murmur Extremities: no edema Testing Laboratory Results 03/19/20 14:10 03/19/20 14:10 PT 10.6 Seconds (9.0-12.0) 03/19/20 14:10 INR 1.0 (0.9-1.1) 03/19/20 14:10 APTT 24.5 Seconds (21.0-31.0) 03/19/20 14:10 Hemoglobin A1c 5.6 % (4.5-5.6) 03/19/20 14:10 Urine Color Yellow 03/19/20 14:40 Urine Appearance Cloudy (Clear) A 03/19/20 14:40 Urine pH 5.0 (4.5-7.5) 03/19/20 14:40 Ur Specific [place] 1.027 (1.000-1.030) 03/19/20 14:40 Urine Protein Negative (Negative) 03/19/20 14:40 Urine Glucose (UA) Negative (Negative) 03/19/20 14:40 Urine Ketones Negative (Negative) 03/19/20 14:40 Urine Nitrite Negative (Negative) 03/19/20 14:40 Ur Leukocyte Esterase Trace (Negative) H 03/19/20 14:40 Urine WBC (Auto) 10-30 /hpf (0-5) H 03/19/20 14:40 Urine RBC (Auto) 0-4 /hpf (0-4) 03/19/20 14:40 U Hyaline Cast (Auto) 1-5 /lpf (0-5) 03/19/20 14:40 U Epithel Cells (Auto) >30 /lpf (0-5) H 03/19/20 14:40 Urine Bacteria (Auto) 1+ (Negative) H 03/19/20 14:40 Blood Type O Positive 03/19/20 14:10 Antibody Screen NEGATIVE 03/19/20 14:10 Electrocardiogram Date: 03/19/20 Findings: + NSR @ (70bpm) iRBBB. No significant change from 08/26/2017 EKG. Chest X-Ray Date: 09/04/19 Findings: + NAD and + R hemidiaphragm elevation ("slight")
--- NOTE | 2020-03-19 15:31 | Electrocardiogram Report ---
Test Reason : Blood Pressure : / mmHG Vent. Rate : 070 BPM Atrial Rate : 070 BPM P-R Int : 166 ms QRS Dur : 088 ms QT Int : 412 ms P-R-T Axes : 047 014 073 degrees QTc Int : 444 ms Normal sinus rhythm Incomplete right bundle branch block When compared with ECG of 26-AUG-2017 12:38, No significant change was found Confirmed by Alexx Monsalve ([id number]) on 03/19/2020 3:31:06 PM Referred By: Per Montilla Confirmed By:Domenico Monsalve
[2020-03-19 15:42] LABS: Basophils # (auto) 0.02 K/uL (0-0.2); Basophils % (auto) 0.3 %; Eosinophils # (auto) 0.06 K/uL (0-0.5); Hematocrit (blood only) 39.7 % (37-47); Hemoglobin 13.1 g/dL (12.0-16.0); Immature Granulocytes # (auto) 0.02 K/uL (0.00-0.02); Immature Granulocytes % (auto) 0.3 %; Lymphocytes # (auto) 1.28 K/uL (1.2-3.4); Lymphocytes % (auto) 20.8 %; Mean Corpuscular Hemoglobin 32.3 pg (25-34); Mean Corpuscular Volume 97.8 fL (80-100); Mean Platelet Volume 9.6 fL (7.4-10.4); Monocytes # (auto) 0.51 K/uL (0.11-0.59); Monocytes % (auto) 8.3 %; Neutrophils # (auto) 4.27 K/uL (1.4-6.5); Neutrophils % (auto) 69.3 %; Platelet Count 257 K/uL (130-400); RDW Coefficient of Variation 15.6 % (11.5-14.5); RDW Standard Deviation 56.1 fL (36.4-46.3); Red Blood Count 4.06 M/uL (4.2-5.4); White Blood Count 6.16 K/uL (4.8-10.8)
[2020-03-19 15:46] LABS: Appearance Urine Cloudy (Clear); Bacteria Urine Automated 1+ (Negative); Bilirubin Urine Negative (Negative); Blood Urine Negative (Negative); Color Urine Yellow; Epithelial Cell Urine Auto >30 /lpf (0-5); Glucose Urine UA Negative (Negative); Ketones Urine Negative (Negative); Leukocyte Esterase Urine Trace (Negative); Nitrite Urine Negative (Negative); Protein Urine Negative (Negative); RBC Urine Automated 0-4 /hpf (0-4); Specific Gravity Urine 1.027 (1.000-1.030); Urobilinogen Urine Negative (Negative)
[2020-03-19 15:51] LABS: Albumin Level 3.5 gm/dl (3.4-5.0); BUN Creatinine Ratio 18.7 (10-20); Calcium 9.1 mg/dl (8.5-10.1); Creatinine Clr Calc Pharmacy 75.8 ml/min; Est GFR (African American) 81.8; Est GFR (Non-African American) 70.6; Potassium 4.3 mmol/L (3.5-5.1)
[2020-03-19 15:53] LABS: Partial Thromboplastin Ratio 0.9; Partial Thromboplastin Time 24.5 Seconds (21.0-31.0); Prothrombin Time 10.6 Seconds (9.0-12.0)
[2020-03-19 16:04] LABS: Mucus Urine Present (None Prsent)
[2020-03-19 16:46] LABS: RBC Morphology Unremarkable
[2020-03-20 05:59] LABS: Estimated Average Glucose 114 mg/dl; Hemoglobin A1C 5.6 % (4.5-5.6)
--- NOTE | 2020-03-29 12:01 | History & Physical Report ---
Date of Service March 29, 2020 date of surgery: 04-17-20 Assessment & Plan (1) Arthritis of right knee: patient presents today with persistent pain right knee, she has tried and failed previous visco series as well as cortisone injection with minimal relief. she has tried Tramadol as well as currently taking 2 [place] at night for her pain. we discussed her options, she has undergone TKA on her left knee and has recovered well, she would like to proceed with Right TKA at [facility]. will need [facility] clearance prior, PATs. The risks and benefits have been discussed including, but not limited to, risk of infection, nerve injury, stiffness, loss of motion, failure to improve, etc. Reasonable outcomes and options of treatment were discussed. An explanation of appropriate alternatives to the procedure that may be advantageous were discussed and their risks and benefits, as well as the risks and benefits of not proceeding with treatment. I offered to answer any additional inquiries concerning the treatment involved. All the patient's questions were answered. The patient is agreeable, understanding of the treatment plan and alternatives, and wishes to proceed with the treatment plan. History of Present Illness Chief Complaint: Right knee pain Primary Care Provider: Preethi Grayson Ms Sampson is a 55 year old female who is here for a follow up of right knee pain, scheduled for a right total knee replacement at [facility]. She presents with pain on the right side. She states that the symptoms have been chronic non- traumatic and her symptoms are constant. The pain is described as aching, sharp and throbbing. She rates her current pain as 8/10. The symptoms are aggravated by daily activities, ascending stairs, descending stairs, weight bearing and walking. She has been treated with cortisone & visco in the past without much relief. she has tried Tramadol as well as currently taking 2 [place] at night for her pain. we discussed her options, she has undergone total knee on her left knee in the past and has recovered well, she would like to proceed with right total knee replacement. Allergies Allergy/AdvReac Type Severity Reaction Status Date / Time tramadol Allergy Severe SUPPRESSES Verified 03/13/20 14:35 RESPIRATORY SYSTEM Home Medications Home Medications Medication Instructions Recorded Confirmed Type amoxicillin 500 mg PO UD PRN 03/13/20 03/13/20 History bupropion HCl [Wellbutrin XL] 150 mg PO QAM 03/13/20 03/13/20 History bupropion HCl [Wellbutrin XL] 300 mg PO QAM 03/13/20 03/13/20 History carvedilol [Coreg] 6.25 mg PO BID 03/13/20 03/13/20 History chlorthalidone 12.5 mg PO QAM 03/13/20 03/13/20 History cholecalciferol (vitamin D3) 50 mcg PO QAM 03/13/20 03/13/20 History [Vitamin D3] duloxetine [Cymbalta] 30 mg PO QAM 03/13/20 03/13/20 History duloxetine [Cymbalta] 120 mg PO QAM 03/13/20 03/13/20 History levothyroxine 175 mcg PO QAM 03/13/20 03/13/20 History multivitamin 1 tab PO QAM 03/13/20 03/13/20 History omeprazole 40 mg PO QAM 03/13/20 03/13/20 History trazodone 500 mg PO HS 03/13/20 03/13/20 History vitamin B complex 1 tab PO QAM 03/13/20 03/13/20 History tofacitinib [Xeljanz] 5 mg PO HS 03/19/20 03/19/20 History Past Med/Surg History Medical History Barretts esophagus Depression with anxiety Fibromyalgia GERD (gastroesophageal reflux disease) Hx of migraines Hyperlipidemia CONTROLLED WITH DIET Hypertension Hypothyroidism Insomnia Mitral valve regurgitation PT STATES DOES PRE-TREAT BEFORE DENTAL PROCEDURES Osteoarthritis Rheumatoid arthritis Surgical History Cyst REMOVED FROM RT ARM H/O laparoscopy FOR ENDOMETRIOSIS History of section X 1 History of colonoscopy History of esophagogastroduodenoscopy (EGD) History of nasal septoplasty History of tonsillectomy and adenoidectomy History of total knee replacement LEFT Nausea and vomiting after administration of anesthetic agent [place] teeth removed Family History Other No significant family history Social History Preferred Language: Nigerien Change Lead Required: No Beliefs That Will Affect Care: Gnosticist Gnosticist Beliefs: JEHOVAW WITNESS/NO BLOOD PRODUCTS Current Living Situation: Family Feels Safe at Home: Yes Safety Concerns: Feels Safe At This Time Smoking Status: Never smoker Do You Dip or Chew Tobacco: No ; Second Hand Exposure: No ; Tobacco Cessation Education Requested by Patient: No Hx Alcohol Use: Yes Alcohol type: wine and hard liquor Hx Substance Use: No Review of Systems Review of Systems: All systems reviewed & are unremarkable except as noted in HPI & below Constitutional: no fever, no chills and no sweats Respiratory: no cough and no dyspnea Cardiovascular: no chest pain, no dyspnea and no orthopnea Gastrointestinal: no abdominal pain, no nausea and no vomiting Musculoskeletal: as per Subjective / HPI Physical Exam Physical Exam: Ht: 5ft 1in Wt: 100.1kg BP: 160/90 Constitutional: WD/WN, vitals as above no acute distress Respiratory: normal respiratory effort, lungs clear to auscultation no respiratory distress, no labored breathing and does not use accessory muscles Cardiovascular: RRR, no murmur, no edema Gastrointestinal (Abdomen): normal bowel sounds, soft, nontender, no hepat osplenomegaly Musculoskeletal: Knee: + knee abnormal to inspection (Right knee- ), + effusion (+1 effusion), + limited ROM of knee (ROM 0/3/120), + knee ROM with crepitation, + joint line tenderness (medial joint line) and + Gerardo's sign positive; no deformity, no skin erythema, no ecchymosis, no valgus laxity, no varus laxity, anterior drawer test negative, Rozina's sign negative and pivot shift test negative Results & Data Results & Data ([facility]) Laboratory Results Laboratory Results WBC 6.16 K/uL (4.8-10.8) 03/19/20 14:10 RBC 4.06 M/uL (4.2-5.4) L 03/19/20 14:10 Hgb 13.1 g/dL (12.0-16.0) 03/19/20 14:10 Hct 39.7 % (37-47) 03/19/20 14:10 MCV 97.8 fL (80-100) 03/19/20 14:10 MCH 32.3 pg (25-34) 03/19/20 14:10 MCHC 33.0 g/dL (32-36) 03/19/20 14:10 RDW Std Deviation 56.1 fL (36.4-46.3) H 03/19/20 14:10 RDW Coeff of Christin 15.6 % (11.5-14.5) H 03/19/20 14:10 Plt Count 257 K/uL (130-400) 03/19/20 14:10 MPV 9.6 fL (7.4-10.4) 03/19/20 14:10 Immature Gran % (Auto) 0.3 % 03/19/20 14:10 Neut % (Auto) 69.3 % 03/19/20 14:10 Lymph % (Auto) 20.8 % 03/19/20 14:10 [place] % (Auto) 8.3 % 03/19/20 14:10 Eos % (Auto) 1.0 % 03/19/20 14:10 Baso % (Auto) 0.3 % 03/19/20 14:10 Immature Gran # (Auto) 0.02 K/uL (0.00-0.02) 03/19/20 14:10 Neut # (Auto) 4.27 K/uL (1.4-6.5) 03/19/20 14:10 Lymph # (Auto) 1.28 K/uL (1.2-3.4) 03/19/20 14:10 [place] # (Auto) 0.51 K/uL (0.11-0.59) 03/19/20 14:10 Eos # (Auto) 0.06 K/uL (0-0.5) 03/19/20 14:10 Baso # (Auto) 0.02 K/uL (0-0.2) 03/19/20 14:10 RBC Morphology Unremarkable 03/19/20 14:10 PT 10.6 Seconds (9.0-12.0) 03/19/20 14:10 INR 1.0 (0.9-1.1) 03/19/20 14:10 APTT 24.5 Seconds (21.0-31.0) 03/19/20 14:10 PTT Ratio 0.9 03/19/20 14:10 Sodium 141 mmol/L (136-145) 03/19/20 14:10 Potassium 4.3 mmol/L (3.5-5.1) 03/19/20 14:10 Chloride 106 mmol/L (98-107) 03/19/20 14:10 Carbon Dioxide 31 mmol/L (21-32) 03/19/20 14:10 Anion Gap 4.0 (3-11) 03/19/20 14:10 BUN 17 mg/dl (7-18) 03/19/20 14:10 Creatinine 0.92 mg/dl (0.6-1.2) 03/19/20 14:10 Est Cr Clr Drug Dosing 75.8 ml/min 03/19/20 14:10 Est GFR ( Amer) 81.8 03/19/20 14:10 Est GFR (Non-Af Amer) 70.6 03/19/20 14:10 BUN/Creatinine Ratio 18.7 (10-20) 03/19/20 14:10 Glucose 110 mg/dl (70-99) H 03/19/20 14:10 Estimat Average Glucose 114 mg/dl 03/19/20 14:10 Hemoglobin A1c 5.6 % (4.5-5.6) 03/19/20 14:10 Calcium 9.1 mg/dl (8.5-10.1) 03/19/20 14:10 Albumin 3.5 gm/dl (3.4-5.0) 03/19/20 14:10 Urine Color Yellow 03/19/20 14:40 Urine Appearance Cloudy (Clear) A 03/19/20 14:40 Urine pH 5.0 (4.5-7.5) 03/19/20 14:40 Ur Specific [place] 1.027 (1.000-1.030) 03/19/20 14:40 Urine Protein Negative (Negative) 03/19/20 14:40 Urine Glucose (UA) Negative (Negative) 03/19/20 14:40 Urine Ketones Negative (Negative) 03/19/20 14:40 Urine Blood Negative (Negative) 03/19/20 14:40 Urine Nitrite Negative (Negative) 03/19/20 14:40 Urine Bilirubin Negative (Negative) 03/19/20 14:40 Urine Urobilinogen Negative (Negative) 03/19/20 14:40 Ur Leukocyte Esterase Trace (Negative) H 03/19/20 14:40 Urine WBC (Auto) 10-30 /hpf (0-5) H 03/19/20 14:40 Urine RBC (Auto) 0-4 /hpf (0-4) 03/19/20 14:40 U Hyaline Cast (Auto) 1-5 /lpf (0-5) 03/19/20 14:40 U Epithel Cells (Auto) >30 /lpf (0-5) H 03/19/20 14:40 Urine Bacteria (Auto) 1+ (Negative) H 03/19/20 14:40 Urine Mucus Present (None Prsent) A 03/19/20 14:40 Blood Type O Positive 03/19/20 14:10 Antibody Screen NEGATIVE 03/19/20 14:10 Diagnostic Findings right knee x-ray showing narrowing of the joint space medial compartment with overall varus alignment, there is also narrowing of the lateral compartment and patellofemoral joint. there is osteophyte formation, subchondral sclerosis noted, no loose bodies, no acute bony pathology. overall impression tricompartmental degenerative changes to the right knee.
[~2020-04-17 07:20] MED LIST changes: -ACET-749 PO; -ATROPINE SULFATE 0.1 MG/ML 5ML SYR IV PRN; -BUPIVACAINE 0.25% 30 ML VIAL ONE; -BUPRTAB51 PO; +CEFAZOLIN 2000MG 2,000 MG/15 ML SYR IV SCH; -CEFAZOLIN 2000MG IV PUSH 15 ML IV SCH; -CYM/60 PO; -DEXAMETHASONE 4 MG TAB PO SCH; -DICL-201 PO; -EpHEDrine SULFATE INJ 50 MG/ML AMP IV PRN; -FLUT50SP37 INTNAS; +GABAPENTIN 900 MG DOSE PO SCH; -GABAPENTIN 900 MG PO SCH; -LACTATED RINGER'S 1000ML 1,000 ML IV SCH; -LACTATED RINGER'S 1000ML 500 ML IV SCH; -LEVO200T PO; -LOSA50TA54 PO; -METOCLOPRAMIDE HCL 10 MG TAB PO SCH; +METOCLOPRAMIDE HCL 10 MG TABLET PO SCH; -PRLSR20 PO; +ROPIVACAINE 0.5% HCL/PF 150 MG, BUPIVACAINE 0.5% MPF 30 ML, EPINEPHrine 30MG/30ML (OR U... INSTIL SCH; -ROPIVACAINE 5MG/ML 30 ML 150 MG, BUPIVACAINE 0.5% MPF INJ 30 ML, EpINEphrine HCL INJ 0.... INFIL SCH; -TOPI50TA16 PO; +TRANEXAMIC ACID 1,000 MG **IV Pre-op IV SCH; -TRAZ100T29 PO; +dexAMETHasone 4 MG TAB PO SCH
[2020-04-17] MEDS: LR 500ML BOLUS, THEN 15ML/HR IV SCH (08:00)
[2020-04-17] MEDS ORDERED: MIDAZOLAM HCL 1 MG/ML 2ML VIAL ONE ×2 (08:20)
[2020-04-17] MEDS ORDERED: PROPOFOL IV EMULSION 10 MG/ML 20 ML VIAL IV ONE (08:20)
[2020-04-17] MEDS ORDERED: fentaNYL citrate 100 MCG/2 ML VIAL ONE (08:20)
[2020-04-17] MEDS ORDERED: LIDOCAINE HCL 2% 2 ML VIAL/AMP(20MG/ML) INFIL ONE (08:20)
--- NOTE | 2020-04-17 08:43 | History & Physical Bridge Note ---
Date of Service April 17, 2020 History & Physical Bridge Note I have examined the patient, reviewed the History & Physical and in the interval since the performance of the History & Physical I have noted the following changes of clinical significance: no changes noted
[2020-04-17] MEDS ORDERED: BACITRACIN INJ 50,000 UNIT VIAL ONE (09:28)
[2020-04-17] MEDS ORDERED: ORTHO JOINT ANESTHETIC ONE (09:28)
[2020-04-17] MEDS: TRANEXAMIC ACID 1,000 MG **IV Intra-op IV SCH ×2 (09:32→10:54)
[2020-04-17] MEDS ORDERED: ePHEDrine sulfate 50 MG/ML AMP IV PRN (10:19)
[2020-04-17] MEDS ORDERED: ATROPINE SULFATE 0.1 MG/ML 10ML SYR IV PRN (10:19)
[2020-04-17] MEDS ORDERED: fentaNYL citrate 100 MCG/2 ML VIAL IV PRN (10:19)
[2020-04-17] MEDS ORDERED: ONDANSETRON INJ 2 MG/ML 2 ML VIAL IV PRN ×2 (10:19→12:25)
--- NOTE | 2020-04-17 10:56 | Operative Report ---
Post Operative Report Pre & Post Diagnosis Operation Date: 04/17/20 09:55 Pre-Op Diagnosis: Unilateral Primary Osteoarthritis, Right Knee Post-Op Diagnosis: Unilateral Primary Osteoarthritis, Right Knee I identified the patient and participated in the time-out.: Yes Procedure Operation Date: 04/17/20 09:55 Actual Procedures p Right Total Knee Arthroplasty(Right) utilizing Rodriguez & NephOptimal+ journey 2 patient matched total knee arthroplasty size 4 femur size 2 tibia size 11 polyethylene size 29 oval patella- Per Montilla DO Surgeon Per Montilla DO Rotary Drum Tanner CYRIL Rivera Estimated Blood Loss 5 Findings Consistent with Post-Op Diagnosis Patient presents with severe end-stage tricompartmental degenerative joint disease right knee with varus alignment subchondral sclerosis marginal osteophytes cystic subchondral cystic changes with eburnated bone moderate to large effusion Specimens Bone and cartilage Drains Medium bore Hemovac Anesthesia Type MAC Spinal Regional Complications none Disposition Accompanied Patient To Recovery: No Disposition: Recovery Room Indications Patient presents after failed attempted conservative management clinic physical therapy anti-inflammatories relative rest activity modification corticosteroid injections scription undergone left total knee arthroplasty she presents today for right total knee arthroplasty Description of Procedure After proper prepping and draping of the Right lower extremity anterior midline incision was made over the region of the extensor extensor mechanism after meticulous hemostasis was obtained and maintained in subcutaneous tissues a medial parapatellar incision was made The patella was subluxed lateralward the medial lateral gutter were cleaned from any hypertrophic synovitis and scar tissue of the distal femoral block was placed and the distal femoral osteotomy cut was made subsequently the chamfers anterior and posterior osteotomy cuts were made utilizing the 4-in-1 block the tibia was subsequently subluxed anteriorward medial and ateral meniscal remnants were excised in their entirety remnants of the anterior and posterior cruciate ligaments were excised in their entirety excellent exposure of the proximal tibia was obtained the tibial osteotomy guide was placed on the proximal tibial osteotomy cut was made once again the knee was irrigated with copious amounts of sterile saline solution the patella was subsequently everted lateralward thickened scar tissue around the patella was removed the patella was subsequently cut utilizing a freehand technique and was drilled prepared for final preparation and placement of patella socially flexion-extension gaps were checked and the equal and symmetric trials were placed to the appropriate femoral and tibial trials with poly-spacer being placed for equal flexion and extension gaps and full range of motion including extension to 0 and flexion to 140 the trial components after having been taken to recovery range of motion was subsequently removed meticulous hemostasis was obtained and maintained subsequently a knee block injection of joint cocktail including ropivacaine 0.5% 150 mg. Bupivacaine 0.5% epinephrine 1-200,030 mL's toradol 30 mg dexamethasone 4 mg ketamine 10 mg clonidine 100 micrograms normal saline solution 30 mg was infiltrated into the soft tissues of the posterior knee medial lateral gutters and periosteal synovium special attention was paid to protect neurovascular structures at all times subsequently trial components having been removed the knee was irrigated with sterile saline solution. debris was removed the proximal tibia was subsequently prepared and was made ready for the placement of the tibial component tibial component was also cemented and tamped into position the femoral component was subsequently placed and cemented in the position the patellar component was subsequently cemented in position because hemostasis once again obtained and maintained wound having been thoroughly irrigated with debridement and debridement lavage was performed as well as a medial parapatellar incision closed with #1 Vicryl in interrupted fashion subcutaneous was closed with #2 Vicryl skin was closed with skin clips. PA-C was necessary for prepping and drapping as well as wound closure of deep fascia Sub cutaneous tissue and skin and was necessary for the case. A sterile compressive dressing was placed patient was taken to recovery in stable condition of report dictated by Roldan I attest to the content of the Intraoperative Record and any orders documented therein. Any exceptions are noted below. I attest to the content of the Intraoperative Record and any orders documented therein. Any exceptions are noted below.
--- NOTE | 2020-04-17 12:16 | Anesthesiology Progress Note ---
Date of Service April 17, 2020 Anesthesia Post Procedure Vital Signs Vital Signs: Temp Pulse Pulse Resp BP Pulse Ox 04/17/20 12:00 97.5 F L 77 13 148/87 H 96 04/17/20 11:45 80 12 147/92 H 98 04/17/20 11:35 73 12 145/86 H 100 04/17/20 11:28 97.2 F L 75 12 183/99 H 100 04/17/20 09:20 85 16 152/93 H 95 04/17/20 08:00 97.9 F 75 20 156/96 H 95 Pain Intensity Right Knee: Pain Intensity: 8 Transfer of Care Handoff Completed per policy Notes Mental Status: alert / awake / arousable and participated in evaluation Patient Amnestic to Procedure: Yes Nausea / Vomiting: adequately controlled Pain: adequately controlled Airway Patency, RR, SpO2: stable & adequate BP & HR: stable & adequate Hydration State: stable & adequate Neuraxial Anesthesia: was administered and sensory block is resolving Anesthetic Complications: no major complications apparent and Pt Satisfied with anesthetic care
[2020-04-17] MEDS ORDERED: NALOXONE HCL 0.4 MG/1 ML VIAL/CARP IV PRN (12:25)
[2020-04-17] MEDS ORDERED: MAGNESIUM HYDROXIDE SUSP 30 ML UDC PO PRN (12:25)
[2020-04-17] MEDS: SODIUM CHLORIDE 0.9% 1000ML 1,000 ML IV SCH ×2 (12:25→21:42)
[2020-04-17] MEDS ORDERED: bisacodyL 10 MG SUPP PR PRN (12:25)
[2020-04-17] MEDS ORDERED: METOCLOPRAMIDE HCL INJ 5 MG/ML 2 ML VIAL IV PRN (12:25)
[2020-04-17] MEDS ORDERED: ALUMINUM/MAGNESIUM SUSP 30 ML UDC PO PRN (12:25)
[2020-04-17] MEDS ORDERED: HYDROmorphone INJ 1 MG/ML SYRINGE IV PRN (12:25)
--- NOTE | 2020-04-17 12:30 | XRay Report ---
TWO VIEWS RIGHT KNEE CLINICAL HISTORY: Postoperative examination. FINDINGS: AP and crosstable lateral portable views of the right knee are obtained. A right knee arthr oplasty is in near anatomic alignment. There has been undersurface remodeling of the patella. No acut e fracture is seen. There are expected postoperative changes around the knee including a surgical dr glendan, soft tissue edema, and subcutaneous gas. IMPRESSION: Expected postoperative changes status post right knee arthroplasty. No acute fracture is seen. ACT 112: Negative or not required by law. Electronically signed by: Dmitriy Ovalle M.D. 04/17/2020 12:28 PM
[2020-04-17] MEDS: KETOROLAC TROMETHAMINE 15 MG/ML VIAL IV SCH ×2 (13:59→19:13)
[2020-04-17] MEDS: ACETAMINOPHEN 500 MG TAB PO SCH ×2 (13:59→21:35)
[2020-04-17] MEDS: OXYCODONE HCL IR 5 MG TAB (IMMEDIATE RELEASE) PO PRN ×2 (16:26→17:19)
[2020-04-17] MEDS ORDERED: HYDROCODONE/ACETAMOPHEN 5/325MG TAB PO PRN (17:51)
[2020-04-17] MEDS: CEFAZOLIN 2000MG 2,000 MG/15 ML SYR IV SCH (18:17)
[2020-04-17] MEDS: MoRPHine SULFATE 4 MG/ML 1 ML CARP\\VIAL IV PRN ×2 (18:29→22:43)
[2020-04-17] MEDS: HYDROCODONE/ACETAMOPHEN 5/325MG TAB PO PRN (19:44)
[2020-04-17] MEDS: carvediloL 6.25 MG TAB PO SCH (21:34)
[2020-04-17] MEDS: SENNA 8.6 MG TAB PO SCH (21:34)
[2020-04-17] MEDS: TRAZODONE HCL 100 MG TAB PO SCH (21:34)
[2020-04-17] MEDS: ASPIRIN 81 MG ECTAB PO SCH (21:34)
[2020-04-17] MEDS: DOCUSATE SODIUM 100 MG CAP PO SCH (21:34)
[2020-04-18] MEDS: CEFAZOLIN 2000MG 2,000 MG/15 ML SYR IV SCH (01:56)
[2020-04-18] MEDS: KETOROLAC TROMETHAMINE 15 MG/ML VIAL IV SCH ×2 (01:56→07:12)
[2020-04-18] MEDS: LEVOTHYROXINE SODIUM 175 MCG TABLET PO SCH (05:16)
[2020-04-18] MEDS: HYDROCODONE/ACETAMOPHEN 5/325MG TAB PO PRN ×2 (05:16→11:27)
[2020-04-18] MEDS: ACETAMINOPHEN 500 MG TAB PO SCH ×3 (05:21→21:36)
[2020-04-18 07:43] LABS: Hematocrit (blood only) 35.2 % (37-47); Hemoglobin 11.3 g/dL (12.0-16.0); Mean Corpuscular Hemoglobin 30.1 pg (25-34); Mean Corpuscular Hgb Conc 32.1 g/dL (32-36); Mean Corpuscular Volume 93.9 fL (80-100); Mean Platelet Volume 9.2 fL (7.4-10.4); Platelet Count 288 K/uL (130-400); RDW Coefficient of Variation 14.2 % (11.5-14.5); RDW Standard Deviation 48.5 fL (36.4-46.3); Red Blood Count 3.75 M/uL (4.2-5.4); White Blood Count 12.43 K/uL (4.8-10.8)
[2020-04-18] MEDS: MoRPHine SULFATE 4 MG/ML 1 ML CARP\\VIAL IV PRN ×4 (07:54→20:35)
[2020-04-18] MEDS: carvediloL 6.25 MG TAB PO SCH ×2 (07:58→22:14)
[2020-04-18] MEDS: DULOXETINE HCL 60 MG CAP PO SCH (07:59)
[2020-04-18] MEDS: DOCUSATE SODIUM 100 MG CAP PO SCH ×2 (07:59→22:14)
[2020-04-18] MEDS: ASPIRIN 81 MG ECTAB PO SCH ×2 (08:00→22:14)
[2020-04-18] MEDS: BuPROPion XL 150 MG TABCR PO SCH (08:00)
[2020-04-18] MEDS: DULOXETINE HCL 30 MG CAP PO SCH (08:00)
[2020-04-18] MEDS: MULTIVITAMIN TAB PO SCH (08:00)
[2020-04-18] MEDS: CHLORTHALIDONE 25 MG TAB PO SCH (08:00)
[2020-04-18] MEDS: VITAMIN B COMPLEX TAB PO SCH (08:01)
[2020-04-18] MEDS: CHOLECALCIFEROL 1,000 UNITS 25 MCG TAB PO SCH (08:01)
[2020-04-18] MEDS: BuPROPion XL 300 MG TABCR PO SCH (08:02)
[2020-04-18 08:21] LABS: BUN Creatinine Ratio 13.1 (10-20); Calcium 8.6 mg/dl (8.5-10.1); Creatinine Clr Calc Pharmacy 60.1 ml/min; Est GFR (African American) 62.7; Est GFR (Non-African American) 54.1; Potassium 4.2 mmol/L (3.5-5.1)
--- NOTE | 2020-04-18 09:09 | Orthopedic Progress Note ---
Date of Service April 18, 2020 Assessment & Plan (1) History of total right knee replacement: POD #1 s/p Right TKA pt/ot dvt proph with DEBRA/SCD/ASA plan for d/c home with HHPT when stable Admission and Anticipated Discharge Date Admission Date: April 17, 2020 Subjective POD #1 s/p Right TKA Review of Systems Constitutional: no fever, no chills and no sweats Respiratory: no cough and no dyspnea Cardiovascular: no chest pain and no dyspnea Gastrointestinal: no abdominal pain, no nausea and no vomiting Physical Exam Physical Exam: Vital Signs Temp 36.7 C 04/18/20 07:25 Pulse 72 04/18/20 07:25 Resp 18 04/18/20 07:25 BP 146/86 H 04/18/20 07:25 Pulse Ox 98 04/18/20 07:25 Intake & Output 04/17/20 04/18/20 04/18/20 18:59 06:59 18:59 Intake Total 2753.5 / 5950.166 3196.666 / 5950.16 6 Output Total 1175 / 2090 915 / 2090 Balance 1578.5 / 3860.166 2281.666 / 3860.16 6 Weight 98.9 kg Intake: IV 763.5 / 2460.166 1696.666 / 2460.16 6 Lr 1,000 ml @ 15 mls/hr IV . 563.5 / 563.5 Q24H [facility]#:[id number] Nss 1000ML 1,0 00 ml @ 100 mls/ 1696.666 / 1696.66 6 hr IV .Q10H SC H Rx#:[id number] TRANEXAMIC ACI D / 0.7% NACL 1, 200 / 200 000 mg In 100 ml @ 600 mls/hr IV TODAY@0600 [facility] Rx#:[id number] IV Perioperative 1750 / 1750 Oral 240 / 1740 1500 / 1740 Output: Urine 1100 / 2000 900 / 2000 Estimated Blood Loss 5 / 5 Drain Output Right Knee Hem ovac Other: # Unmeasured Voi ds 1 Constitutional: WD/WN, vitals as above no acute distress Musculoskeletal: Right Leg: NVDI, calf SNT, negative kasi sign. DP palpable, able to wiggle toes/ankle movement without difficulty. dressing clean dry and intact. Results & Data ([facility]) Vital Signs (Past 12 Hours) Vital Signs Temp Pulse Resp BP Pulse Ox 04/18/20 07:25 36.7 C 72 18 146/86 H 98 04/18/20 03:28 36.5 C 84 16 115/71 92 04/17/20 23:05 36.8 C 86 20 129/76 94 04/17/20 21:32 88 157/81 H Laboratory Results Laboratory Results WBC 12.43 K/uL (4.8-10.8) H 04/18/20 07:24 RBC 3.75 M/uL (4.2-5.4) L 04/18/20 07:24 Hgb 11.3 g/dL (12.0-16.0) L 04/18/20 07:24 Hct 35.2 % (37-47) L 04/18/20 07:24 MCV 93.9 fL (80-100) 04/18/20 07:24 MCH 30.1 pg (25-34) 04/18/20 07:24 MCHC 32.1 g/dL (32-36) 04/18/20 07:24 RDW Std Deviation 48.5 fL (36.4-46.3) H 04/18/20 07:24 RDW Coeff of Christin 14.2 % (11.5-14.5) 04/18/20 07:24 Plt Count 288 K/uL (130-400) 04/18/20 07:24 MPV 9.2 fL (7.4-10.4) 04/18/20 07:24 Immature Gran % (Auto) 0.3 % 03/19/20 14:10 Neut % (Auto) 69.3 % 03/19/20 14:10 Lymph % (Auto) 20.8 % 03/19/20 14:10 [place] % (Auto) 8.3 % 03/19/20 14:10 Eos % (Auto) 1.0 % 03/19/20 14:10 Baso % (Auto) 0.3 % 03/19/20 14:10 Immature Gran # (Auto) 0.02 K/uL (0.00-0.02) 03/19/20 14:10 Neut # (Auto) 4.27 K/uL (1.4-6.5) 03/19/20 14:10 Lymph # (Auto) 1.28 K/uL (1.2-3.4) 03/19/20 14:10 [place] # (Auto) 0.51 K/uL (0.11-0.59) 03/19/20 14:10 Eos # (Auto) 0.06 K/uL (0-0.5) 03/19/20 14:10 Baso # (Auto) 0.02 K/uL (0-0.2) 03/19/20 14:10 RBC Morphology Unremarkable 03/19/20 14:10 PT 10.6 Seconds (9.0-12.0) 03/19/20 14:10 INR 1.0 (0.9-1.1) 03/19/20 14:10 APTT 24.5 Seconds (21.0-31.0) 03/19/20 14:10 PTT Ratio 0.9 03/19/20 14:10 Sodium 140 mmol/L (136-145) 04/18/20 07:24 Potassium 4.2 mmol/L (3.5-5.1) 04/18/20 07:24 Chloride 107 mmol/L (98-107) 04/18/20 07:24 Carbon Dioxide 29 mmol/L (21-32) 04/18/20 07:24 Anion Gap 4.0 (3-11) 04/18/20 07:24 BUN 15 mg/dl (7-18) 04/18/20 07:24 Creatinine 1.14 mg/dl (0.6-1.2) 04/18/20 07:24 Est Cr Clr Drug Dosing 60.1 ml/min 04/18/20 07:24 Est GFR ( Amer) 62.7 04/18/20 07:24 Est GFR (Non-Af Amer) 54.1 04/18/20 07:24 BUN/Creatinine Ratio 13.1 (10-20) 04/18/20 07:24 Glucose 112 mg/dl (70-99) H 04/18/20 07:24 Estimat Average Glucose 114 mg/dl 03/19/20 14:10 Hemoglobin A1c 5.6 % (4.5-5.6) 03/19/20 14:10 Calcium 8.6 mg/dl (8.5-10.1) 04/18/20 07:24 Albumin 3.5 gm/dl (3.4-5.0) 03/19/20 14:10 Specimen Hemolysis 04/18/20 07:24 Urine Color Yellow 03/19/20 14:40 Urine Appearance Cloudy (Clear) A 03/19/20 14:40 Urine pH 5.0 (4.5-7.5) 03/19/20 14:40 Ur Specific [place] 1.027 (1.000-1.030) 03/19/20 14:40 Urine Protein Negative (Negative) 03/19/20 14:40 Urine Glucose (UA) Negative (Negative) 03/19/20 14:40 Urine Ketones Negative (Negative) 03/19/20 14:40 Urine Blood Negative (Negative) 03/19/20 14:40 Urine Nitrite Negative (Negative) 03/19/20 14:40 Urine Bilirubin Negative (Negative) 03/19/20 14:40 Urine Urobilinogen Negative (Negative) 03/19/20 14:40 Ur Leukocyte Esterase Trace (Negative) H 03/19/20 14:40 Urine WBC (Auto) 10-30 /hpf (0-5) H 03/19/20 14:40 Urine RBC (Auto) 0-4 /hpf (0-4) 03/19/20 14:40 U Hyaline Cast (Auto) 1-5 /lpf (0-5) 03/19/20 14:40 U Epithel Cells (Auto) >30 /lpf (0-5) H 03/19/20 14:40 Urine Bacteria (Auto) 1+ (Negative) H 03/19/20 14:40 Urine Mucus Present (None Prsent) A 03/19/20 14:40 Hepatitis C Ab Screen Neg (Neg) 04/17/20 12:49 Blood Type O Positive 03/19/20 14:10 Antibody Screen NEGATIVE 03/19/20 14:10 Diagnostic Findings TWO VIEWS RIGHT KNEE CLINICAL HISTORY: Postoperative examination. FINDINGS: AP and crosstable lateral portable views of the right knee are obtained. A right knee arthroplasty is in near anatomic alignment. There has been undersurface remodeling of the patella. No acute fracture is seen. There are expected postoperative changes around the knee including a surgical drain, soft tissue edema, and subcutaneous gas. IMPRESSION: Expected postoperative changes status post right knee arthroplasty. No acute fracture is seen.
[2020-04-18] MEDS: HYDROCODONE/ACETAMINOPHEN 7.5/325MG TAB PO PRN ×2 (14:50→21:35)
[2020-04-18] MEDS: SENNA 8.6 MG TAB PO SCH (22:14)
[2020-04-18] MEDS: CeleBREX 200 MG CAP PO SCH (22:14)
[2020-04-18] MEDS: TRAZODONE HCL 100 MG TAB PO SCH (23:15)
[2020-04-19] MEDS: MoRPHine SULFATE 4 MG/ML 1 ML CARP\\VIAL IV PRN ×2 (00:30→05:47)
[2020-04-19] MEDS: HYDROCODONE/ACETAMINOPHEN 7.5/325MG TAB PO PRN (03:33)
[2020-04-19] MEDS: ACETAMINOPHEN 500 MG TAB PO SCH ×3 (05:28→21:03)
[2020-04-19] MEDS: LEVOTHYROXINE SODIUM 175 MCG TABLET PO SCH (05:28)
--- NOTE | 2020-04-19 07:49 | Orthopedic Progress Note ---
Date of Service April 19, 2020 Assessment & Plan (1) History of total right knee replacement: POD #2 s/p Right TKA pt/ot dvt proph with DEBRA/SCD/ASA plan for d/c home with HHPT when stable will consult pain management for recommendations for better pain control. Admission and Anticipated Discharge Date Admission Date: April 17, 2020 Supervising Physician Co-Signing Physician Notes Agree with CYRIL Triana's note above. Patient doing well. Making good progress with therapy. Pain better controlled after switching to Percocet per Pain Management recommendation. Somnolent during visit; states she had trouble sleeping last 2 nights. Comfortable going home today. Plan for D/C home today. Subjective POD #2 s/p Right TKA Review of Systems Review of Systems: All systems reviewed & are unremarkable except as noted in HPI & below Constitutional: no fever and no chills Respiratory: no cough and no dyspnea Cardiovascular: no chest pain, no dyspnea and no orthopnea Gastrointestinal: no abdominal pain, no nausea and no vomiting Physical Exam Physical Exam: Vital Signs Temp 36.5 C 04/18/20 15:42 Pulse 78 04/18/20 22:13 Resp 16 04/18/20 15:42 BP 128/79 04/18/20 22:13 Pulse Ox 93 04/18/20 15:42 Intake & Output 04/18/20 04/19/20 04/19/20 18:59 06:59 18:59 Intake Total 915 / 1765 850 / 1765 Output Total Balance 914 / 1764 850 / 1764 Intake: Oral 915 / 1765 850 / 1765 Output: Drain Output 0 / 0 Right Knee Hem ovac 0 / 0 # Bowel Movement s Other: # Unmeasured Voi ds 3 1 Constitutional: WD/WN, vitals as above no acute distress Musculoskeletal: Right leg: NVDI, calf SNT, negative kasi sign. DP palpable, able to wiggle toes/ankle movement without difficulty. Incision clean dry and intact. expected post-operative bruising noted. Results & Data ([facility]) Vital Signs (Past 12 Hours) Vital Signs Pulse BP 04/18/20 22:13 78 128/79 Laboratory Results Laboratory Results WBC 12.43 K/uL (4.8-10.8) H 04/18/20 07:24 RBC 3.75 M/uL (4.2-5.4) L 04/18/20 07:24 Hgb 11.3 g/dL (12.0-16.0) L 04/18/20 07:24 Hct 35.2 % (37-47) L 04/18/20 07:24 MCV 93.9 fL (80-100) 04/18/20 07:24 MCH 30.1 pg (25-34) 04/18/20 07:24 MCHC 32.1 g/dL (32-36) 04/18/20 07:24 RDW Std Deviation 48.5 fL (36.4-46.3) H 04/18/20 07:24 RDW Coeff of Christin 14.2 % (11.5-14.5) 04/18/20 07:24 Plt Count 288 K/uL (130-400) 04/18/20 07:24 MPV 9.2 fL (7.4-10.4) 04/18/20 07:24 Immature Gran % (Auto) 0.3 % 03/19/20 14:10 Neut % (Auto) 69.3 % 03/19/20 14:10 Lymph % (Auto) 20.8 % 03/19/20 14:10 [place] % (Auto) 8.3 % 03/19/20 14:10 Eos % (Auto) 1.0 % 03/19/20 14:10 Baso % (Auto) 0.3 % 03/19/20 14:10 Immature Gran # (Auto) 0.02 K/uL (0.00-0.02) 03/19/20 14:10 Neut # (Auto) 4.27 K/uL (1.4-6.5) 03/19/20 14:10 Lymph # (Auto) 1.28 K/uL (1.2-3.4) 03/19/20 14:10 [place] # (Auto) 0.51 K/uL (0.11-0.59) 03/19/20 14:10 Eos # (Auto) 0.06 K/uL (0-0.5) 03/19/20 14:10 Baso # (Auto) 0.02 K/uL (0-0.2) 03/19/20 14:10 RBC Morphology Unremarkable 03/19/20 14:10 PT 10.6 Seconds (9.0-12.0) 03/19/20 14:10 INR 1.0 (0.9-1.1) 03/19/20 14:10 APTT 24.5 Seconds (21.0-31.0) 03/19/20 14:10 PTT Ratio 0.9 03/19/20 14:10 Sodium 140 mmol/L (136-145) 04/18/20 07:24 Potassium 4.2 mmol/L (3.5-5.1) 04/18/20 07:24 Chloride 107 mmol/L (98-107) 04/18/20 07:24 Carbon Dioxide 29 mmol/L (21-32) 04/18/20 07:24 Anion Gap 4.0 (3-11) 04/18/20 07:24 BUN 15 mg/dl (7-18) 04/18/20 07:24 Creatinine 1.14 mg/dl (0.6-1.2) 04/18/20 07:24 Est Cr Clr Drug Dosing 60.1 ml/min 04/18/20 07:24 Est GFR ( Amer) 62.7 04/18/20 07:24 Est GFR (Non-Af Amer) 54.1 04/18/20 07:24 BUN/Creatinine Ratio 13.1 (10-20) 04/18/20 07:24 Glucose 112 mg/dl (70-99) H 04/18/20 07:24 Estimat Average Glucose 114 mg/dl 03/19/20 14:10 Hemoglobin A1c 5.6 % (4.5-5.6) 03/19/20 14:10 Calcium 8.6 mg/dl (8.5-10.1) 04/18/20 07:24 Albumin 3.5 gm/dl (3.4-5.0) 03/19/20 14:10 Specimen Hemolysis 04/18/20 07:24 Urine Color Yellow 03/19/20 14:40 Urine Appearance Cloudy (Clear) A 03/19/20 14:40 Urine pH 5.0 (4.5-7.5) 03/19/20 14:40 Ur Specific [place] 1.027 (1.000-1.030) 03/19/20 14:40 Urine Protein Negative (Negative) 03/19/20 14:40 Urine Glucose (UA) Negative (Negative) 03/19/20 14:40 Urine Ketones Negative (Negative) 03/19/20 14:40 Urine Blood Negative (Negative) 03/19/20 14:40 Urine Nitrite Negative (Negative) 03/19/20 14:40 Urine Bilirubin Negative (Negative) 03/19/20 14:40 Urine Urobilinogen Negative (Negative) 03/19/20 14:40 Ur Leukocyte Esterase Trace (Negative) H 03/19/20 14:40 Urine WBC (Auto) 10-30 /hpf (0-5) H 03/19/20 14:40 Urine RBC (Auto) 0-4 /hpf (0-4) 03/19/20 14:40 U Hyaline Cast (Auto) 1-5 /lpf (0-5) 03/19/20 14:40 U Epithel Cells (Auto) >30 /lpf (0-5) H 03/19/20 14:40 Urine Bacteria (Auto) 1+ (Negative) H 03/19/20 14:40 Urine Mucus Present (None Prsent) A 03/19/20 14:40 Hepatitis C Ab Screen Neg (Neg) 04/17/20 12:49 Blood Type O Positive 03/19/20 14:10 Antibody Screen NEGATIVE 03/19/20 14:10
[2020-04-19] MEDS: DULOXETINE HCL 30 MG CAP PO SCH (08:26)
[2020-04-19] MEDS: VITAMIN B COMPLEX TAB PO SCH (08:26)
[2020-04-19] MEDS: carvediloL 6.25 MG TAB PO SCH ×2 (08:26→20:47)
[2020-04-19] MEDS: DULOXETINE HCL 60 MG CAP PO SCH (08:27)
[2020-04-19] MEDS: CHLORTHALIDONE 25 MG TAB PO SCH (08:27)
[2020-04-19] MEDS: BuPROPion XL 300 MG TABCR PO SCH (08:27)
[2020-04-19] MEDS: CHOLECALCIFEROL 1,000 UNITS 25 MCG TAB PO SCH (08:27)
[2020-04-19] MEDS: DOCUSATE SODIUM 100 MG CAP PO SCH ×2 (08:28→20:47)
[2020-04-19] MEDS: MULTIVITAMIN TAB PO SCH (08:28)
[2020-04-19] MEDS: CeleBREX 200 MG CAP PO SCH (08:28)
[2020-04-19] MEDS: ASPIRIN 81 MG ECTAB PO SCH ×2 (08:28→20:47)
[2020-04-19] MEDS ORDERED: MoRPHine SULFATE 4 MG/ML 1 ML CARP\\VIAL IV PRN (08:45)
[2020-04-19] MEDS ORDERED: MoRPHine SULFATE 2 MG/ML CARP IV PRN (08:49)
--- NOTE | 2020-04-19 08:49 | Pain Management Consultation ---
Date of Consultation April 19, 2020 Assessment & Plan (1) History of total right knee replacement: Patient does appear very drowsy when talking to her. Unsure if she'll recall my visit but I did discuss her pain control plan as below: 1. Discontinue Hydrocodone. 2. Initiate Percocet 5/325mg 1-2 tablets PO Q4 hours PRN pain. She has previously taken without any issues. 3. I have decreased the dosage and increased the interval of Morphine to 2mg x 6 hours. 4. If tolerated, she could be discharged on Percocet for post op pain control. Thank you for the consultation. Please contact pain management for any questions or concerns. History of Present Illness Attending Physician: Per Montilla DO History of Present Illness Mrs. Sampson is a 55 year old female that is status post right knee arthroplasty. Surgery was on 04/17/2020. She reports significant pain in the right knee since the surgery. Hydrocodone 5/325mg 1-2 tablets PO was ordered with Morphine 4mg IV for breakthrough. She states that the [place] is not providing more than 2 hours of pain relief. Patient states that this regimen did adequately control her pain for the left knee that was replaced 2 years ago. Ambulation has been minimal. Yesterday the Hydrocodone was increased to 7.5mg 1-2 tablets PO which is now causing significant drowsiness. Allergies Allergy/AdvReac Type Severity Reaction Status Date / Time tramadol Allergy Severe SUPPRESSES Verified 04/17/20 08:19 RESPIRATORY SYSTEM Home Medications Home Medications Medication Instructions Recorded Confirmed Type amoxicillin 500 mg PO UD PRN 03/13/20 04/17/20 History bupropion HCl [Wellbutrin XL] 150 mg PO QAM 03/13/20 04/17/20 History bupropion HCl [Wellbutrin XL] 300 mg PO QAM 03/13/20 04/17/20 History carvedilol [Coreg] 6.25 mg PO BID 03/13/20 04/17/20 History chlorthalidone 12.5 mg PO QAM 03/13/20 04/17/20 History cholecalciferol (vitamin D3) 50 mcg PO QAM 03/13/20 04/17/20 History [Vitamin D3] duloxetine [Cymbalta] 30 mg PO QAM 03/13/20 04/17/20 History duloxetine [Cymbalta] 120 mg PO QAM 03/13/20 04/17/20 History levothyroxine 175 mcg PO QAM 03/13/20 04/17/20 History multivitamin 1 tab PO QAM 03/13/20 04/17/20 History omeprazole 40 mg PO QAM 03/13/20 04/17/20 History trazodone 500 mg PO HS 03/13/20 04/17/20 History vitamin B complex 1 tab PO QAM 03/13/20 04/17/20 History tofacitinib [Xeljanz] 5 mg PO HS 03/19/20 04/17/20 History Pain History Pain Location Full Body Front + Back: 1. Current Therapy Current Medication Therapy: NSAIDs, Cymbalta and Opiods Patient History Medical History Barretts esophagus Depression with anxiety Fibromyalgia GERD (gastroesophageal reflux disease) Hx of migraines Hyperlipidemia CONTROLLED WITH DIET Hypertension Hypothyroidism Insomnia Mitral valve regurgitation PT STATES DOES PRE-TREAT BEFORE DENTAL PROCEDURES Osteoarthritis Rheumatoid arthritis Surgical History Cyst REMOVED FROM RT ARM H/O laparoscopy FOR ENDOMETRIOSIS History of section X 1 History of colonoscopy History of esophagogastroduodenoscopy (EGD) History of nasal septoplasty History of tonsillectomy and adenoidectomy History of total knee replacement LEFT Nausea and vomiting after administration of anesthetic agent [place] teeth removed Family History Other No significant family history Social History Preferred Language: Sudanese Communication Ability: Effective Manager Operations Required: No Beliefs That Will Affect Care: Yazidism Yazidism Beliefs: JEHOVAW WITNESS/NO BLOOD PRODUCTS Current Living Situation: Family Feels Safe at Home: Yes Safety Concerns: Feels Safe At This Time Smoking Status: Never smoker Do You Dip or Chew Tobacco: No ; Second Hand Exposure: No ; Tobacco Cessation Education Requested by Patient: No Hx Alcohol Use: Yes Alcohol type: wine and hard liquor Hx Substance Use: No Physical Exam Physical Exam: GENERAL: This is a morbidly obese 55 year old female. HEAD/FACE: Normocephalic and atraumatic. EYES: No drainage or conjunctival injection. CHEST/AXILLA: Chest movement symmetrical. No deformities noted. SKIN: [place], warm and dry. No rash noted. MS/EXTREMITY: Right knee dressing in place. NEURO: She is drowsy and having difficulty keeping her eyes open during our discussion. She is answering questions appropriately. Speech is fluent. Cranial Nerves are grossly intact. PSYCH: Pleasant, affect is calm
[2020-04-19] MEDS: OXYCODONE/ACETAMINOPHEN 5mg/325mg TAB PO PRN ×2 (10:01→14:36)
[2020-04-19] MEDS: BuPROPion XL 150 MG TABCR PO SCH (10:02)
[2020-04-19] MEDS: KETOROLAC 30 MG/ML VIAL IV SCH ×2 (16:24→21:43)
[2020-04-19] MEDS: SENNA 8.6 MG TAB PO SCH (20:47)
[2020-04-19] MEDS: TRAZODONE HCL 100 MG TAB PO SCH (22:44)
[2020-04-20] MEDS: OXYCODONE/ACETAMINOPHEN 5mg/325mg TAB PO PRN ×2 (01:01→09:22)
[2020-04-20] MEDS: KETOROLAC 30 MG/ML VIAL IV SCH ×2 (03:52→09:24)
[2020-04-20] MEDS: ACETAMINOPHEN 500 MG TAB PO SCH (05:49)
[2020-04-20] MEDS: LEVOTHYROXINE SODIUM 175 MCG TABLET PO SCH (05:49)
--- NOTE | 2020-04-20 06:59 | Orthopedic Progress Note ---
Date of Service April 20, 2020 Assessment & Plan (1) History of total right knee replacement: POD #3 s/p Right TKA pt/ot dvt proph with DEBRA/SCD/ASA plan for d/c home with HHPT later today tolerating Percocet, will plan on d/c w/ percocet. Admission and Anticipated Discharge Date Admission Date: April 17, 2020 Subjective POD #3 s/p Right TKA Review of Systems Constitutional: no fever and no chills Respiratory: no cough and no dyspnea Cardiovascular: no chest pain, no dyspnea and no orthopnea Gastrointestinal: no nausea and no vomiting Physical Exam Physical Exam: Vital Signs Temp 36.9 C 04/19/20 23:25 Pulse 80 04/19/20 23:25 Resp 18 04/19/20 23:25 BP 114/73 04/19/20 23:25 Pulse Ox 97 04/19/20 23:25 Intake & Output 04/19/20 04/19/20 04/20/20 06:59 18:59 06:59 Intake Total 850 / 1765 550 / 550 Balance 850 / 1764 550 / 550 Intake: Oral 850 / 1765 550 / 550 Other: # Unmeasured Voi ds 1 3 Constitutional: WD/WN, vitals as above no acute distress Musculoskeletal: Right knee: NVDI, calf SNT, negative kasi sign. DP palpable, able to wiggle toes/ankle movement without difficulty.Pr[place] clean dry and intact. expected post-operative bruising noted. Results & Data ([facility]) Vital Signs (Past 12 Hours) Vital Signs Temp Pulse Resp BP Pulse Ox 04/19/20 23:25 36.9 C 80 18 114/73 97 04/19/20 20:47 81 120/75
--- NOTE | 2020-04-20 07:46 | Discharge Summary ---
Date of Service date of discharge: April 20, 2020 date of admission: 04-17-20 Admission HPI Per Admitting Provider Ms Sampson is a 55 year old female who is here for a follow up of right knee pain, scheduled for a right total knee replacement at [facility]. She presents with pain on the right side. She states that the symptoms have been chronic non-traumatic and her symptoms are constant. The pain is described as aching, sharp and throbbing. She rates her current pain as 8/10. The symptoms are aggravated by daily activities, ascending stairs, descending stairs, weight bearing and walking. She has been treated with cortisone & visco in the past without much relief. she has tried Tramadol as well as currently taking 2 [place] at night for her pain. we discussed her options, she has undergone total knee on her left knee in the past and has recovered well, she would like to proceed with right total knee replacement. Principal Diagnosis right knee osteoarthritis Discharge Data Allergies Allergy/AdvReac Type Severity Reaction Status Date / Time tramadol Allergy Severe SUPPRESSES Verified 04/17/20 08:19 RESPIRATORY SYSTEM Consultations 04/17/20 12:25 Consult Case Management - Discharge Planning Routine 04/19/20 07:49 Consult Pain Management Routine Procedures Performed Operation Date: 04/17/20 09:55 Actual Procedures p Right Total Knee Arthroplasty(Right) - Per Montilla DO Ordered Studies 04/17/20 05:00 US - OR guided needle placemen Routine Hospital Course (1) History of total right knee replacement: POD #3 s/p Right TKA pt/ot dvt proph with DEBRA/SCD/ASA plan for d/c home with HHPT later today she early on had issues with pain control, however currently tolerating Percocet, will plan on d/c w/ percocet. Laboratory Results WBC 12.43 K/uL (4.8-10.8) H 04/18/20 07:24 RBC 3.75 M/uL (4.2-5.4) L 04/18/20 07:24 Hgb 11.3 g/dL (12.0-16.0) L 04/18/20 07:24 Hct 35.2 % (37-47) L 04/18/20 07:24 MCV 93.9 fL (80-100) 04/18/20 07:24 MCH 30.1 pg (25-34) 04/18/20 07:24 MCHC 32.1 g/dL (32-36) 04/18/20 07:24 RDW Std Deviation 48.5 fL (36.4-46.3) H 04/18/20 07:24 RDW Coeff of Christin 14.2 % (11.5-14.5) 04/18/20 07:24 Plt Count 288 K/uL (130-400) 04/18/20 07:24 MPV 9.2 fL (7.4-10.4) 04/18/20 07:24 Immature Gran % (Auto) 0.3 % 03/19/20 14:10 Neut % (Auto) 69.3 % 03/19/20 14:10 Lymph % (Auto) 20.8 % 03/19/20 14:10 Sampson % (Auto) 8.3 % 03/19/20 14:10 Eos % (Auto) 1.0 % 03/19/20 14:10 Baso % (Auto) 0.3 % 03/19/20 14:10 Immature Gran # (Auto) 0.02 K/uL (0.00-0.02) 03/19/20 14:10 Neut # (Auto) 4.27 K/uL (1.4-6.5) 03/19/20 14:10 Lymph # (Auto) 1.28 K/uL (1.2-3.4) 03/19/20 14:10 Sampson # (Auto) 0.51 K/uL (0.11-0.59) 03/19/20 14:10 Eos # (Auto) 0.06 K/uL (0-0.5) 03/19/20 14:10 Baso # (Auto) 0.02 K/uL (0-0.2) 03/19/20 14:10 RBC Morphology Unremarkable 03/19/20 14:10 PT 10.6 Seconds (9.0-12.0) 03/19/20 14:10 INR 1.0 (0.9-1.1) 03/19/20 14:10 APTT 24.5 Seconds (21.0-31.0) 03/19/20 14:10 PTT Ratio 0.9 03/19/20 14:10 Sodium 140 mmol/L (136-145) 04/18/20 07:24 Potassium 4.2 mmol/L (3.5-5.1) 04/18/20 07:24 Chloride 107 mmol/L (98-107) 04/18/20 07:24 Carbon Dioxide 29 mmol/L (21-32) 04/18/20 07:24 Anion Gap 4.0 (3-11) 04/18/20 07:24 BUN 15 mg/dl (7-18) 04/18/20 07:24 Creatinine 1.14 mg/dl (0.6-1.2) 04/18/20 07:24 Est Cr Clr Drug Dosing 60.1 ml/min 04/18/20 07:24 Est GFR ( Amer) 62.7 04/18/20 07:24 Est GFR (Non-Af Amer) 54.1 04/18/20 07:24 BUN/Creatinine Ratio 13.1 (10-20) 04/18/20 07:24 Glucose 112 mg/dl (70-99) H 04/18/20 07:24 Estimat Average Glucose 114 mg/dl 03/19/20 14:10 Hemoglobin A1c 5.6 % (4.5-5.6) 03/19/20 14:10 Calcium 8.6 mg/dl (8.5-10.1) 04/18/20 07:24 Albumin 3.5 gm/dl (3.4-5.0) 03/19/20 14:10 Specimen Hemolysis 04/18/20 07:24 Urine Color Yellow 03/19/20 14:40 Urine Appearance Cloudy (Clear) A 03/19/20 14:40 Urine pH 5.0 (4.5-7.5) 03/19/20 14:40 Ur Specific [place] 1.027 (1.000-1.030) 03/19/20 14:40 Urine Protein Negative (Negative) 03/19/20 14:40 Urine Glucose (UA) Negative (Negative) 03/19/20 14:40 Urine Ketones Negative (Negative) 03/19/20 14:40 Urine Blood Negative (Negative) 03/19/20 14:40 Urine Nitrite Negative (Negative) 03/19/20 14:40 Urine Bilirubin Negative (Negative) 03/19/20 14:40 Urine Urobilinogen Negative (Negative) 03/19/20 14:40 Ur Leukocyte Esterase Trace (Negative) H 03/19/20 14:40 Urine WBC (Auto) 10-30 /hpf (0-5) H 03/19/20 14:40 Urine RBC (Auto) 0-4 /hpf (0-4) 03/19/20 14:40 U Hyaline Cast (Auto) 1-5 /lpf (0-5) 03/19/20 14:40 U Epithel Cells (Auto) >30 /lpf (0-5) H 03/19/20 14:40 Urine Bacteria (Auto) 1+ (Negative) H 03/19/20 14:40 Urine Mucus Present (None Prsent) A 03/19/20 14:40 Hepatitis C Ab Screen Neg (Neg) 04/17/20 12:49 Blood Type O Positive 03/19/20 14:10 Antibody Screen NEGATIVE 03/19/20 14:10 Total Time Total Time Spent Total Time Spent (In Minutes): 20 Total Time Includes: Examination of the Patient, Discharge Planning and Medication Reconciliation Discharge Plan Discharge Items Patient Disposition: Home - Home Health Services Reason For Visit: Unilateral Primary Osteoarthritis, Right Knee Discharge Diagnosis: Right Total Knee Replacement Condition on Discharge: Good Activity: Per Instructions section Lifting: Wait until after follow-up appointment Weightbearing: Full weightbearing Non-emergency contact: Surgeon Call non-emergency contact if: you have any medication questions, your symptoms worsen, your temperature is above 101, your wound has increased redness, your wound has increased drainage and your wound pain has increased Follow-up/Referrals: Preethi Grayson MD [Primary Care Provider] - Diet: Regular Addtl Attending Provider Instructions: ACTIVITY RECOMMENDATIONS: SELF CARE INSTRUCTIONS AFTER TOTAL KNEE REPLACEMENT A. You may need to continue a physical therapy program after discharge from the hospital. There are several options available to you. Your doctor will assist you in selecting the best one for you. 1. An out-patient facility 2 to 3 times a week for therapy or home therapy. 2. Continue working on all exercises taught to you in the hospital. Your goals should be to increase bending of your knee to 90 degrees and beyond and to fully straighten your knee. B. You may progress at your own pace from walking with a walker or crutches to a cane; then to no assistive devices. C. Make walking a part of your daily routine. Be up as much as comfortable with rest periods throughout the day. Rest with leg elevation is very important. Use the ice wrap frequently for the first 3-4 weeks. D. There are no restrictions on activities. You may ride in a car, shop, participate in stranding machine operator and all social activities. E. Wear the long elastic stockings (DEBRA hose) 20 hours a day for 2 weeks after surgery. They can be removed several times a day for laundering and for a bath. F. You may shower, no tub baths until cleared by your doctor. SPECIAL CARE INSTRUCTIONS: VERY IMPORTANT TO READ AND REVIEW A. There are a few signs you need to watch for after you are home. Call [facility] if you notice any of the followin. Increased severe knee pain. Some pain is expected especially when you exercise. 2. Increased swelling in your leg or knee; pain or swelling of the calf muscle in either lower leg. 3. Any fluid drainage from the incision. 4. Shortness of breath or chest pain. B. Please call [facility] at if you have any concerns or questions about your operation or recovery. The doctor or his nurse will return your call promptly. C. You must take antibiotics before dental work, bladder, bowel or other surgery. Your doctor will provide you with a permanent care to carry describing this precaution. IMPORTANT: * REMEMBER TO TAKE ASPIRIN, 81 MG, TWICE DAILY FOR 4 WEEKS UNLESS OTHERWISE DIRECTED. THIS IS YOUR BLOOD THINNER. * HIGH RISK PATIENTS MAY BE PRESCRIBED A STRONGER BLOOD THINNER. THIS WILL BE PROVIDED AT DISCHARGE. * CALL IF INCREASED PAIN, REDNESS, DRAINAGE OR FEVER GREATER THAT 101. * WEAR DEBRA HOSE 20 HOURS PER DAY FOR 2 WEEKS. * DERMABOND Pr[place]- This is a mesh tape dressing that is covered with glue. It should remain in place until the incision is properly healed, usually 10-14 days. This dressing is designed to naturally slough off. You may trim the excess mesh tape as it peels off. Incision may be briefly wet in a shower. Dry immediately by blotting with a clean, dry towel. Do not bath or swim until instructed by your doctor. Do not scratch, rub, or pick at the dressing. Do not apply any topical ointments or lotions until dressing is completely removed and/or instructed by your doctor. There may be a small piece of suture material at one end of your incision. Do not pull or trim this. If it is bothersome or catching on clothing, you may cover it with a band-aid. IF INCISION IS LEAKING THROUGH DRESSING, CALL THE OFFICE . FOLLOW UP VISIT: If appointment is not already scheduled: Please call [facility] to make a follow-up appointment for 2 weeks after your surgery at . Pending Studies at Discharge: No Stand-Alone Forms: My [facility] [employer], Smoking Cessation Medications and DC Order Prescriptions: New aspirin 81 mg Tablet,Delayed Release (Dr/Ec) 81 mg PO BID 30 Days Qty: 60 RF: 0 oxycodone-acetaminophen [Percocet] 5-325 mg Tablet 1 - 2 tab PO .q4-6h MDD 8 PRN (Reason: pain) Qty: 30 RF: 0 sennosides [Senokot] 8.6 mg Tablet 17.2 mg PO HS Qty: 30 RF: 0 cefadroxil 500 mg capsule 500 mg PO BID Qty: 28 RF: 1 Narcan 4 mg/actuation spray,non-aerosol 1 sprays INTNAS ONCE Qty: 2 RF: 0 Continued multivitamin Tablet 1 tab PO QAM RF: 0 levothyroxine 175 mcg Tablet 175 mcg PO QAM RF: 0 carvedilol [Coreg] 6.25 mg Tablet 6.25 mg PO BID RF: 0 chlorthalidone 25 mg Tablet 12.5 mg PO QAM RF: 0 omeprazole 40 mg Capsule,Delayed Release(Dr/Ec) 40 mg PO QAM RF: 0 trazodone 100 mg Tablet 500 mg PO HS RF: 0 vitamin B complex Tablet 1 tab PO QAM RF: 0 bupropion HCl [Wellbutrin XL] 300 mg Tablet Extended Release 24 Hr 300 mg PO QAM RF: 0 bupropion HCl [Wellbutrin XL] 150 mg Tablet Extended Release 24 Hr 150 mg PO QAM RF: 0 duloxetine [Cymbalta] 30 mg Capsule,Delayed Release(Dr/Ec) 30 mg PO QAM RF: 0 duloxetine [Cymbalta] 60 mg Capsule,Delayed Release(Dr/Ec) 120 mg PO QAM RF: 0 cholecalciferol (vitamin D3) [Vitamin D3] 50 mcg (2,000 unit) Capsule 50 mcg PO QAM RF: 0 amoxicillin 500 mg Tablet 500 mg PO UD PRN (Reason: BEFORE DENTAL PROCEDURES) RF: 0 Xeljanz 5 mg Tablet 5 mg PO HS RF: 0 Discharge Orders: Discharge Order (Routine); Ordered 04/20/20 Ordered By: Dario Triana Admission Data Admit Date/Time: 04/17/20 11:41 Attending Provider: Per Montilla Admit Provider: Per Montilla Primary Care Provider: Preethi Grayson V. Other Providers: Maurilio Lofton ; Angie Wallis ; Dante Cardenas ; Chinyere Scott
[2020-04-20] MEDS: DOCUSATE SODIUM 100 MG CAP PO SCH (08:23)
[2020-04-20] MEDS: DULOXETINE HCL 30 MG CAP PO SCH (08:24)
[2020-04-20] MEDS: BuPROPion XL 150 MG TABCR PO SCH (08:24)
[2020-04-20] MEDS: CHOLECALCIFEROL 1,000 UNITS 25 MCG TAB PO SCH (08:24)
[2020-04-20] MEDS: ASPIRIN 81 MG ECTAB PO SCH (08:24)
[2020-04-20] MEDS: DULOXETINE HCL 60 MG CAP PO SCH (08:25)
[2020-04-20] MEDS: BuPROPion XL 300 MG TABCR PO SCH (08:25)
[2020-04-20] MEDS: VITAMIN B COMPLEX TAB PO SCH (08:25)
[2020-04-20] MEDS: MULTIVITAMIN TAB PO SCH (08:25)
[2020-04-20] MEDS: CHLORTHALIDONE 25 MG TAB PO SCH (08:26)
[2020-04-20] MEDS: carvediloL 6.25 MG TAB PO SCH (08:26)
[2020-04-20] MEDS ORDERED: KETOROLAC 30 MG/ML VIAL IV PRN (16:00)
== END 2020-04-20 11:11 | disposition home health service (06) | DRG 470 ==
LOC: ASU 07:20 → 3E 11:41